=== PATIENT | male | born 1975 | race Caucasian/White ===

== ENCOUNTER → 2017-09-18 | Outpatient (CLI) | payer OTHER ==
[2017-09-18 10:56] LABS: BASO # 0.1 10^3/uL (0.0-0.2); BASO % 0.9 % (0.0-1.0); EOS # 0.6 10^3/uL (0.0-0.50); EOS % 9.7 % (0.0-3.0); IMMATURE GRANULOCYTE % 0.5 % (0-0); LYMPH # 1.8 10^3/uL (1.5-4.5); LYMPH % 30.5 % (24.0-44.0); MEAN CORPUSCULAR HEMOGLOBIN 30.6 pg (27.0-33.0); MEAN CORPUSCULAR HGB CONC 34.2 g/dl (32.0-36.5); MEAN CORPUSCULAR VOLUME 89.3 fl (80.0-96.0); MONO # 0.6 10^3/uL (0.0-0.8); MONO % 10.1 % (0.0-5.0); NEUTROPHILS # 2.8 10^3/uL (1.8-7.7); NEUTROPHILS % 48.3 % (36.0-66.0); PLATELET COUNT, AUTOMATED 239 10^3/uL (150-450); RED CELL DISTRIBUTION WIDTH 12.6 % (11.5-14.5); WHITE BLOOD COUNT 5.9 10^3/uL (4.0-10.0)
[2017-09-18 11:41] LABS: ALBUMIN 4.1 GM/DL (3.2-5.2); ALBUMIN/GLOBULIN RATIO 1.24 (1.00-1.93); ALKALINE PHOSPHATASE 58 U/L (45-117); ALT/SGPT 63 U/L (12-78); ANION GAP 6 MEQ/L (8-16); AST/SGOT 25 U/L (7-37); BILIRUBIN,TOTAL 0.5 MG/DL (0.2-1.0); BLOOD UREA NITROGEN 13 MG/DL (7-18); CALCIUM LEVEL 9.4 MG/DL (8.5-10.1); CARBON DIOXIDE LEVEL 29 MEQ/L (21-32); CHLORIDE LEVEL 106 MEQ/L (98-107); CHOLESTEROL LEVEL 217 MG/DL (<200); CREATININE FOR GFR 0.97 MG/DL (0.70-1.30); FREE T4 0.96 NG/DL (0.76-1.46); GLOMERULAR FILTRATION RATE > 60.0 (>60); GLUCOSE, FASTING 87 MG/DL (70-105); POTASSIUM SERUM 4.1 MEQ/L (3.5-5.1); SODIUM LEVEL 141 MEQ/L (136-145); TOTAL PROTEIN 7.4 GM/DL (6.4-8.2); TRIGLYCERIDES LEVEL 133 MG/DL (<150)
[2017-09-19 14:18] LABS: PSA TOTAL 0.8 ng/mL (0.0-4.0)
== END ==
LOC: M LAB 09:45
PROVIDERS: ATTEND Family Medicine
DX: E78.00 Pure hypercholesterolemia, unspecified (principal); N41.0 Acute prostatitis; Z13.29 Encounter for screening for other suspected endocrine disorder; Z12.11 Encounter for screening for malignant neoplasm of colon; D64.9 Anemia, unspecified

== ENCOUNTER → 2018-11-08 | Outpatient (CLI) | payer OTHER ==
[2018-11-08 09:30] LABS: BASO % 0.6 % (0.0-1.0); EOS # 0.2 10^3/uL (0.0-0.50); EOS % 2.8 % (0.0-3.0); HEMATOCRIT 46.1 % (42.0-52.0); HEMOGLOBIN 15.9 g/dl (13.5-17.5); LYMPH # 1.9 10^3/uL (1.5-4.5); LYMPH % 34.8 % (24.0-44.0); MEAN CORPUSCULAR HEMOGLOBIN 31.2 pg (27.0-33.0); MEAN CORPUSCULAR HGB CONC 34.5 g/dl (32.0-36.5); MEAN CORPUSCULAR VOLUME 90.4 fl (80.0-96.0); MONO # 0.6 10^3/uL (0.0-0.8); MONO % 11.2 % (0.0-5.0); NEUTROPHILS # 2.7 10^3/uL (1.8-7.7); NEUTROPHILS % 50.2 % (36.0-66.0); PLATELET COUNT, AUTOMATED 236 10^3/uL (150-450); WHITE BLOOD COUNT 5.4 10^3/uL (4.0-10.0)
[2018-11-08 10:08] LABS: ALBUMIN 4.1 GM/DL (3.2-5.2); ALT/SGPT 55 U/L (12-78); BILIRUBIN,TOTAL 0.7 MG/DL (0.2-1.0); BLOOD UREA NITROGEN 15 MG/DL (7-18); CALCIUM LEVEL 8.9 MG/DL (8.5-10.1); CARBON DIOXIDE LEVEL 29 MEQ/L (21-32); CHLORIDE LEVEL 105 MEQ/L (98-107); CHOLESTEROL LEVEL 189 MG/DL (<200); CHOLESTEROL RISK RATIO 6.096 (<5); CREATININE FOR GFR 1.05 MG/DL (0.70-1.30); FREE T4 0.93 NG/DL (0.76-1.46); GLOMERULAR FILTRATION RATE > 60.0 (>60); GLUCOSE, FASTING 98 MG/DL (70-100); HDL CHOLESTEROL 31 MG/DL (>40); LDL CHOLESTEROL 128 MG/DL (<100); NON-HDL-C 158 MG/DL; POTASSIUM SERUM 4.2 MEQ/L (3.5-5.1); PROSTATIC SPECIFIC AG MONITOR 0.65 NG/ML (< 4.00); SODIUM LEVEL 141 MEQ/L (136-145); TOTAL PROTEIN 7.2 GM/DL (6.4-8.2); TRIGLYCERIDES LEVEL 152 MG/DL (<150)
== END ==
LOC: M LAB 09:02
PROVIDERS: ATTEND Family Medicine
DX: Z13.29 Encounter for screening for other suspected endocrine disorder (principal); E78.00 Pure hypercholesterolemia, unspecified; N41.0 Acute prostatitis; D64.9 Anemia, unspecified

== ENCOUNTER 2019-10-23 15:55 | Emergency (ER) | payer OTHER ==
[~2019-10-23] VITALS: Ht 195.6 cm; Wt 137.6 kg
[2019-10-23] MEDS ORDERED: CYAN1000VL (16:06)
[2019-10-23] MEDS ORDERED: TIZA4TAB4 (16:06)
[2019-10-23] MEDS ORDERED: HYDR-4571 (16:06)
[2019-10-23 16:37] LABS: BASO % 0.5 % (0.0-1.0); EOS # 0.1 10^3/uL (0.0-0.5); EOS % 1.1 % (0.0-3.0); HEMOGLOBIN 17.1 g/dl (13.5-17.5); LYMPH # 2.4 10^3/uL (1.5-5.0); LYMPH % 28.8 % (24.0-44.0); MEAN CORPUSCULAR HEMOGLOBIN 30.1 pg (27.0-33.0); MEAN CORPUSCULAR HGB CONC 32.9 g/dl (32.0-36.5); MEAN CORPUSCULAR VOLUME 91.4 fl (80.0-96.0); MONO # 0.8 10^3/uL (0.0-0.8); MONO % 9.7 % (0.0-5.0); NEUTROPHILS # 4.9 10^3/uL (1.5-8.5); NEUTROPHILS % 59.7 % (36.0-66.0); PLATELET COUNT, AUTOMATED 255 10^3/uL (150-450); RED BLOOD COUNT 5.69 10^6/uL (4.30-6.10); WHITE BLOOD COUNT 8.2 10^3/uL (4.0-10.0)
[2019-10-23 16:40] LABS: INR 1.08; PROTHROMBIN TIME 13.8 SECONDS (11.8-14.0)
[2019-10-23 16:41] LABS: PARTIAL THROMBOPLASTIN TIME 26.3 SECONDS (25.0-38.4)
[2019-10-23] MEDS ORDERED: ASPIRIN 325 MG TAB PO ONE (16:45)
[2019-10-23] MEDS ORDERED: GI COCKTAIL 50ML BTL(HYOSCYAMINE/MAALOX/LIDOCAINE VISCOUS)(1:3:1) PO ONE (16:45)
[2019-10-23 17:07] LABS: ALBUMIN 4.4 GM/DL (3.2-5.2); ALT/SGPT 51 U/L (12-78); BILIRUBIN,DIRECT 0.2 MG/DL (0.0-0.2); BILIRUBIN,TOTAL 0.5 MG/DL (0.2-1.0); BLOOD UREA NITROGEN 13 MG/DL (7-18); C REACTIVE PROTEIN QUANTITATIV < 0.30 MG/DL (0.00-0.30); CALCIUM LEVEL 9.3 MG/DL (8.5-10.1); CARBON DIOXIDE LEVEL 29 MEQ/L (21-32); CHLORIDE LEVEL 104 MEQ/L (98-107); CK-MB VALUE MASS < 1.0 NG/ML (<3.6); CPK CREATINE PHOSPHOKINASE 154 U/L (39-308); CREATININE FOR GFR 1.06 MG/DL (0.70-1.30); GLOMERULAR FILTRATION RATE > 60.0 (>60); GLUCOSE, FASTING 80 MG/DL (70-100); MB/CK RELATIVE INDEX 0.65 (< OR =4); POTASSIUM SERUM 3.5 MEQ/L (3.5-5.1); SODIUM LEVEL 139 MEQ/L (136-145); TOTAL PROTEIN 8.2 GM/DL (6.4-8.2); TROPONIN I < 0.02 NG/ML (< 0.10)
[2019-10-23] MEDS ORDERED: ISOVUE-370 76% 100ML VIAL (Q9967) As Ordered ONE (17:20)
[2019-10-23] MEDS ORDERED: KETOROLAC 30 MG/ML VIAL (J1885) IV ONE (19:15)
[2019-10-23 20:59] LABS: CK-MB VALUE MASS < 1.0 NG/ML (<3.6); CPK CREATINE PHOSPHOKINASE 132 U/L (39-308); MB/CK RELATIVE INDEX 0.76 (< OR =4); TROPONIN I < 0.02 NG/ML (< 0.10)
[2019-10-23 21:00] VITALS: BP 141/84
--- NOTE | 2019-10-24 10:49 | REP ---
CHEST, SINGLE VIEW: There is no evidence of acute infiltrate. No pleural effusion is seen. The heart is normal in size. The mediastinal silhouette is unremarkable. The visualized osseous structures are intact. IMPRESSION: No acute pulmonary disease. Electronically Signed by Nando Aparicio MD 10/24/2019 04:46 P
--- NOTE | 2019-10-24 22:27 | ECGEPIP ---
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
--- NOTE | 2019-10-24 22:33 | ECGEPIP ---
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
== END 2019-10-23 21:27 | disposition home or self-care (01) ==
LOC: M ED 15:55
DX: R07.89 Other chest pain (principal); Z88.1 Allergy status to other antibiotic agents; Z91.040 Latex allergy status; Z91.048 Other nonmedicinal substance allergy status
CPT/HCPCS: 71045; 71275; 80048; 80076; 82550; 82553; 84443; 85025; 85610; 85730; 86140; 93005; 93041; 94760; 96374; 99285; J1885; Q9967

== ENCOUNTER → 2020-04-22 | Outpatient (REF) | payer OTHER ==
[~2020-04-22] MED LIST: CYAN1000VL; HYDR-4571; TIZA4TAB4
[2020-04-22 14:57] LABS: AMORPHOUS SEDIMENT LARGE (NEGATIVE); APPEARANCE, URINE TURBID (CLEAR); BACTERIA, URINE AUTO 2+ (NEGATIVE); BILIRUBIN, URINE AUTO NEGATIVE (NEGATIVE); BLOOD, URINE BLOOD NEGATIVE (NEGATIVE); COLOR, URINE YELLOW (YELLOW); GLUCOSE, URINE (UA) AUTO NEGATIVE (NEGATIVE); KETONE, URINE AUTO NEGATIVE (NEGATIVE); LEUKOCYTE ESTERASE, URINE AUTO NEGATIVE (NEGATIVE); MUCUS, URINE SMALL (NEGATIVE); NITRITE, URINE AUTO NEGATIVE (NEGATIVE); PROTEIN, URINE AUTO NEGATIVE (NEGATIVE); RBC, URINE AUTO 0 /HPF (0-3); SPECIFIC GRAVITY URINE AUTO 1.029 (1.002-1.035); SQUAMOUS EPITHELIAL CELL UR AU 3 /HPF (0-6); UROBILINOGEN, URINE AUTO 0.2 mg/dL (0.0-2.0); WBC, URINE AUTO 0 /HPF (0-3)
== END ==
LOC: M SMT 14:38
PROVIDERS: ATTEND Nurse Practitioner Women's Health
DX: R30.0 Dysuria (principal)

== ENCOUNTER → 2020-05-16 | Outpatient (CLI) | payer OTHER | LOC: M LABSMTC 09:59 | PROVIDERS: ATTEND Urology | DX: Z01.818 Encounter for other preprocedural examination (principal); Z11.59 Encounter for screening for other viral diseases | CPT/HCPCS: C9803; U0003 ==

== ENCOUNTER → 2020-07-20 | Outpatient (CLI) | payer OTHER | LOC: M LAB 14:17 | PROVIDERS: ATTEND Surgery | DX: N35.812 Other bulbous urethral stricture, male (principal) ==

== ENCOUNTER → 2020-07-23 | Outpatient (CLI) | payer OTHER ==
[2020-07-23 12:35] LABS: APPEARANCE, URINE CLEAR (CLEAR); BACTERIA, URINE AUTO NEGATIVE (NEGATIVE); BILIRUBIN, URINE AUTO NEGATIVE (NEGATIVE); BLOOD, URINE BLOOD NEGATIVE (NEGATIVE); COLOR, URINE YELLOW (YELLOW); GLUCOSE, URINE (UA) AUTO NEGATIVE (NEGATIVE); KETONE, URINE AUTO NEGATIVE (NEGATIVE); LEUKOCYTE ESTERASE, URINE AUTO NEGATIVE (NEGATIVE); MUCUS, URINE SMALL (NEGATIVE); NITRITE, URINE AUTO NEGATIVE (NEGATIVE); PROTEIN, URINE AUTO NEGATIVE (NEGATIVE); RBC, URINE AUTO 1 /HPF (0-3); SPECIFIC GRAVITY URINE AUTO 1.017 (1.002-1.035); SQUAMOUS EPITHELIAL CELL UR AU 0 /HPF (0-6); UROBILINOGEN, URINE AUTO 0.2 mg/dL (0.0-2.0); WBC, URINE AUTO 1 /HPF (0-3)
== END ==
LOC: M LAB 09:28
PROVIDERS: ATTEND Surgery
DX: N35.812 Other bulbous urethral stricture, male (principal)

== ENCOUNTER 2020-12-26 03:01 | Emergency (ER) | payer OTHER ==
[~2020-12-26] VITALS: Ht 195.6 cm; Wt 138.9 kg
[2020-12-26] MEDS ORDERED: PREDOPD OD (03:11)
[2020-12-26] MEDS ORDERED: OCUF0.25 OD (03:11)
--- OUTSIDE RECORDS SUMMARY | 2020-12-26 03:11 | CCD | Summary of Care ---
Author Author [facility] Organization [facility] Address Unknown Phone Unavailable Care Team Providers Care Journal Box Inspector Name Role Phone Dalila Durán TECHNOLOGY PROGRAM MANAGER PCP Reason for Visit * Reason Comments Follow-up status post urethroplasty Encounter Details Care Team Description Date Type Department Vinny Aburto MD [address] [place] [address] Other stricture of urethra in male (Prim marley Dx) 10/25/2020 Office Visit [facility] [address] [place] [address], [place] [address] Allergies Comments Active Allergy Reactions Severity Noted Date Adhesive Tape Rash Low 06/14/2020 Glucose Rash Low 07/27/2020 Latex Rash Low 06/14/2020 Red Dye Hives 07/27/2020 documented as of this encounter (statuses as of 10/25/2020) Medications End Date Status Medication Sig Dispensed Refills Start Date Active Cyanocobalamin 1000 INJECT ONE 0 MCG/ML Injection Solution MILLILITER 0 (VITAMIN B12) EVERY TWO WEEKS Active HYDROcodone-Acetaminophen TAKE TWO 0 5-325 MG Oral Tablet TABLETS BY 0 (LORTAB) MOUTH AT BEDTIME NEEDED MAX DAILY DOSE TWO TABLETS Active tiZANidine HCl 4 MG Oral TAKE ONE 0 02/08 Tablet (ZANAFLEX) TABLET BY 0 MOUTH EVERY EIGHT HOURS NEEDED Active Vitamin D TAKE ONE 0 (Ergocalciferol) 1.25 MG CAPSULE BY 9 (59921 UT) Oral Capsule MOUTH ONCE A (ERGOCALCIFEROL) MONTH Active Loratadine 10 MG Oral Take 10 mg by 0 Tablet (CLARITIN) mouth as needed Active UNABLE TO FIND every morning 0 Med Name: Prosta Strong , Active POTASSIUM PO Take by mouth 0 Supplement for a-fib , monthly Active diphenhydrAMINE HCl 50 MG Take 25 mg by 0 Oral Capsule (BENADRYL) mouth every 6 (six) hours as needed for Itching Active Ascorbic Acid (VITAMIN C Take by mouth 0 PO) every morning Active Elderberry 575 MG/5ML Take 1 mL by 0 08/05/20 2 Oral Syrup mouth every 0 morning Active maalox/lidocaine/diphenhy Swish and 480 mL 2 drAMINE 1:1:1 SWISH & spit 10 mLs 0 SWAL oral suspension every 2 (two) hours as needed (For Mouth Pain)Pharmacy compound: Maalox, lidocaine viscous 2 %, Benadryl 12.5 mg/5 mL Additional Information Patient not taking. Reported on 10/25/2020 10:15 AM documented as of this encounter (statuses as of 10/25/2020) Active Problems Problem Noted Date Urethral stricture documented as of this encounter (statuses as of 10/25/2020) Social History Date Tobacco Use Types Packs/Day Years Used Never Smoker Smokeless Tobacco: Never Used Drinks/Week oz/Week Comments Alcohol Use occasionally Yes Sex Assigned at Date Recorded Not on file Date Recorded COVID-19 Exposure Response 10/25/2020 9:53 AM EST In the last month, have you been in contact with No / Unsure someone who was confirmed or suspected to have Coronavirus / COVID-19? documented as of this encounter Last Filed Vital Signs Reading Time Taken Comments Vital Sign 143/96 10/25/2020 10:07 AM EST Blood Pressure 72 10/25/2020 10:07 AM EST Pulse 36.7 C (98.1 F) 10/25/2020 10:07 AM EST Temperature 18 10/25/2020 10:07 AM EST Respiratory Rate 97% 10/25/2020 10:07 AM EST Oxygen Saturation - - Inhaled Oxygen Concentration 138.8 kg (306 lb) 10/25/2020 10:07 AM EST Weight 193 cm (6' 3.98") 10/25/2020 10:07 AM EST Height 37.26 10/25/2020 10:07 AM EST Body Mass Index documented in this encounter Progress Notes * Shayla Serna MD - 10/25/2020 10:00 AM EST Chief complaint Urethral stricture status post repair History of Present Illness Raghavendra Salinas is a pleasant 45 y.o. male with history of urethral stricture st atus post repair with liquid buccal mucosal graft presents for follow-up visit. Patient has been doing well since his procedure. He denies any mouth pain, dysur ia, hematuria, or UTIs. Patient endorses good flow of stream. He is very happy w ith the functional and aesthetic out come of the procedure and has no additional concerns at this time. No fever, no chills, no penile/perineal or oral pain. He has long history of low libido (his preop testosterone is wnl), as he attribu bakari likely due to long-standing anxiety and depression. RAYMOND IPSS , (frequency=2, nocturia=1) QOL 0 GRA +3 PROM (peeling score marked 4= highest force of flow) MSHQ reported PAST MEDICAL HISTORY Past Medical History: Diagnosis Date Atrial fibrillation r/t potassium deficiency Pernicious anemia Urethral stricture PAST SURGICAL HISTORY Past Surgical History: Procedure Laterality Date NOSE SURGERY urethral stricture surgery 2008 Urethral Stricture surgery 2010 WISDOM TOOTH EXTRACTION Medications: Current Outpatient Medications: Ascorbic Acid (VITAMIN C PO), Take by mouth every morning, Disp: , Rfl: Cyanocobalamin 1000 MCG/ML Injection Solution (VITAMIN B12), INJECT ONE MILLILITER EVERY TWO WEEKS, Disp: , Rfl: diphenhydrAMINE HCl 50 MG Oral Capsule (BENADRYL), Take 25 mg by mouth e very 6 (six) hours as needed for Itching, Disp: , Rfl: Elderberry 575 MG/5ML Oral Syrup, Take 1 mL by mouth every morning, Disp : , Rfl: HYDROcodone-Acetaminophen 5-325 MG Oral Tablet (LORTAB), TAKE TWO TABLET S BY MOUTH AT BEDTIME NEEDED MAX DAILY DOSE TWO TABLETS, Disp: , Rfl: Loratadine 10 MG Oral Tablet (CLARITIN), Take 10 mg by mouth as needed , Disp: , Rfl: maalox/lidocaine/diphenhydrAMINE 1:1:1 SWISH & SWAL oral suspension, Swish and spit 10 mLs every 2 (two) hours as needed (For Mouth Pain)Pharmacy compound: Maalox, lidocaine viscous 2 %, Benadryl 12.5 mg/5 mL, Disp: 480 mL, Rfl: 2 POTASSIUM PO, Take by mouth Supplement for a-fib , monthly, Disp: , Rfl: tiZANidine HCl 4 MG Oral Tablet (ZANAFLEX), TAKE ONE TABLET BY MOUTH TAMIKA RY EIGHT HOURS NEEDED, Disp: , Rfl: UNABLE TO FIND, every morning Med Name: Heriberto Galicia ,, Disp: , Rfl: Vitamin D (Ergocalciferol) 1.25 MG (44094 UT) Oral Capsule (ERGOCALCIFER OL), TAKE ONE CAPSULE BY MOUTH ONCE A MONTH, Disp: , Rfl: Allergies: Red dye, Adhesive tape, [place] syrup [glucose], and Latex PAST FAMILY Family History Problem Relation Age of Onset Anemia Father Breast cancer Mother Family history reviewed and otherwise non-contributory SOCIAL HISTORY Social History Socioeconomic History Marital status: Spouse name: Not on file Number of children: Not on file Years of education: Not on file Highest education level: Not on file Occupational History Not on file Social Needs Financial resource strain: Not on file Food insecurity Worry: Not on file Inability: Not on file Transportation needs Medical: Not on file Non-medical: Not on file Tobacco Use Smoking status: Never Smoker Smokeless tobacco: Never Used Substance and Sexual Activity Alcohol use: Yes Comment: occasionally Drug use: Never Sexual activity: Not on file Lifestyle Physical activity Days per week: Not on file Minutes per session: Not on file Stress: Not on file Relationships Social connections Talks on phone: Not on file Gets together: Not on file Attends baptism service: Not on file Active member of club or organization: Not on file Attends meetings of clubs or organizations: Not on file Relationship status: Not on file Intimate partner violence Fear of current or ex partner: Not on file Emotionally abused: Not on file Physically abused: Not on file Forced sexual activity: Not on file Other Topics Concern Not on file Social History Narrative Not on file REVIEW OF SYSTEMS Pertinent positives noted in the HPI, remainder of complete review of systems ne gative EXAMINATION Vitals: 10/25/20 1007 BP: (!) 143/96 Pulse: 72 Resp: 18 Temp: 36.7 C SpO2: 97% Gen: NAD, A&O X3 Head: NC/AT Neuro: Ambulating independently w/o gait abnormalities Eyes: EOMI, Pupils equal Neck: supple Lungs: Breathing and speaking easily on RA Abd: soft, NT/ND, no masses palpable Back: no CVA tenderness b/l, no back deformities Skin: warm, dry Extr: No edema Uroflow: Peak flow rate: 38 mL/s Average flow rate: 19 mL/s Voided volume: 416 mL PVR: 135 2nd void: 250 mL Calculated PVR: 0 mL ASSESSMENT/RECOMMENDATIONS 45 y.o. male with history of urethral stricture status post repair with liquid buccal mucosal graft who presents for 3 month follow up. Patient has been doin g well since the procedure and is very happy with both the functional and aesthe tic outcomes. He has no urinary concerns at this time. -Return to clinic in 4 months for follow-up. Patient seen and examined with Dr. Aburto. Please see attending addendum for changes/additional management plans. Attestation: I was present with the resident during the history and exam. I dis cussed the case with the resident and agree with the findings and plan as docume nted in the resident's note. Vinny Aburto MD documented in this encounter Nursing Notes * Mariluz Real - 10/25/2020 10:00 AM EST Uroflow results are: Peak flow = 37.8 mL/sec Mean Flow = 19.2 mL/sec Total voided volume = 416 mL PVR = 135 mL documented in this encounter Plan of Treatment Care Team Description Date Type Specialty Vinny Aburto MD [address] [place] [address] [phone] 02/21/2021 Office Visit Urology Health Maintenance Due Date Last Done Comments MMR Vaccines (1 of - 1978 Standard series) Varicella Vaccines (1 of 1978 2 - 2-dose childhood series) DTaP,Tdap,and Td Vaccines 01/12/1984 (1 - Tdap) HIV Screening 1990 Influenza Vaccine 08/05/2020 Pneumococcal Vaccine: 65+ 2042 Years (1 of 1 - PPSV23) HIB Vaccines Aged Out No longer eligible based on patient's age to complete this topic Hepatitis A Vaccines Aged Out No longer eligibl e based on patient's age to complete this topic Hepatitis B Vaccines Aged Out No longer eligibl e based on patient's age to complete this topic IPV Vaccines Aged Out No longer eligible based on patient's age to complete this topic Pneumococcal Vaccine: Aged Out No longer eligib le based on patient's age to Pediatrics (0 to 5 Years) complete this topic and At-Risk Patients (6 to 64 Years) documented as of this encounter Results Not on filedocumented in this encounter Visit Diagnoses Diagnosis Other stricture of urethra in male - Pr imary documented in this encounter
--- OUTSIDE RECORDS SUMMARY | 2020-12-26 03:12 | CCD ---
Author Author [facility] Organization [facility] Address Unknown Phone Unavailable Care Team Providers Care Wellness Consultant Name Role Phone ERIN JHONSON Unavailable Unavailabl e [facility], MJAIN Unavailable Unavailable Vinny Aburto MD Unavailable Unavailable Vinny Aburto MD Unavailable Unavailable Vinny Aburto MD Unavailable Unavailable Vinny Aburto MD Unavailable Unavailable Vinny Aburto MD Unavailable Unavailable Vinny Aburto MD Unavailable Unavailable Vinny Aburto MD Unavailable Unavailable Vinny Aburto MD Unavailable Unavailable Vinny Aburto MD Unavailable Unavailable Vinny Aburto MD Unavailable Unavailable Vinny Aubrto MD Unavailable Unavailable Vinny Aburto MD Unavailable Unavailable Vinny Aburto MD Unavailable Unavailable Vinny Aburto MD Unavailable Unavailable Vinny Aburto MD Unavailable Unavailable Vinny Aburto Unavailable Unavailable Nikolavsky Vinny MD Unavailable Unavailable Nikolavsky Vinny MD Unavailable Unavailable Nikolavsky Vinny MD Unavailable Unavailable Nikolavsky Vinny MD Unavailable Unavailable Nikolavsky Vinny MD Unavailable Unavailable Nikolavsky Vinny MD Unavailable Unavailable Nikolavsky Vinny MD Unavailable Unavailable Nikolavsky Vinny MD Unavailable Unavailable Nikolavsky Vinny MD Unavailable Unavailable Nikolavsky Vinny MD Unavailable Unavailable Nikolavsky Vinny MD Unavailable Unavailable Nikolavsky Vinny MD Unavailable Unavailable Nikolavsky Vinny MD Unavailable Unavailable Nikolavsky Vinny MD Unavailable Unavailable Nikolavsky Vinny MD Unavailable Unavailable Nikolavsky Vinny MD Unavailable Unavailable Nikolavsky Vinny MD Unavailable Unavailable Nikolavsky Vinny MD Unavailable Unavailable Nikolavsky Vinny MD Unavailable Unavailable Nikolavsky Vinny MD Unavailable Unavailable Nikolavsky Vinny MD Unavailable Unavailable Nikolavsky Vinny MD Unavailable Unavailable Nikolavsky Vinny MD Unavailable Unavailable Nikolavsky Vinny MD Unavailable Unavailable Nikolavsky Vinny MD Unavailable Unavailable Nikolavsky Vinny MD Unavailable Unavailable Nikolavsky Vinny MD Unavailable Unavailable Nikolavsky Vinny MD Unavailable Unavailable Nikolavsky Vinny MD Unavailable Unavailable Nikolavsky Vinny MD Unavailable Unavailable ALIASES , DEFAULT / GENERIC / UNKNOWN PROVIDER * Unavailable Unavailable ALIASES , DEFAULT / GENERIC / UNKNOWN PROVIDER * Unavailable Unavailable ALIASES , DEFAULT / GENERIC / UNKNOWN PROVIDER * Unavailable Unavailable ALIASES , DEFAULT / GENERIC / UNKNOWN PROVIDER * Unavailable Unavailable ALIASES , DEFAULT / GENERIC / UNKNOWN PROVIDER * Unavailable Unavailable ALIASES , DEFAULT / GENERIC / UNKNOWN PROVIDER * Unavailable Unavailable ALIASES , DEFAULT / GENERIC / UNKNOWN PROVIDER * Unavailable Unavailable ALIASES , DEFAULT / GENERIC / UNKNOWN PROVIDER * Unavailable Unavailable ALIASES , DEFAULT / GENERIC / UNKNOWN PROVIDER * Unavailable Unavailable ALIASES , DEFAULT / GENERIC / UNKNOWN PROVIDER * Unavailable Unavailable ALIASES , DEFAULT / GENERIC / UNKNOWN PROVIDER * Unavailable Unavailable ALIASES , DEFAULT / GENERIC / UNKNOWN PROVIDER * Unavailable Unavailable ALIASES , DEFAULT / GENERIC / UNKNOWN PROVIDER * Unavailable Unavailable ALIASES , DEFAULT / GENERIC / UNKNOWN PROVIDER * Unavailable Unavailable ALIASES , DEFAULT / GENERIC / UNKNOWN PROVIDER * Unavailable Unavailable ALIASES , DEFAULT / GENERIC / UNKNOWN PROVIDER * Unavailable Unavailable ALIASES , DEFAULT / GENERIC / UNKNOWN PROVIDER * Unavailable Unavailable ALIASES , DEFAULT / GENERIC / UNKNOWN PROVIDER * Unavailable Unavailable ALIASES , DEFAULT / GENERIC / UNKNOWN PROVIDER * Unavailable Unavailable ALIASES , DEFAULT / GENERIC / UNKNOWN PROVIDER * Unavailable Unavailable ALIASES , DEFAULT / GENERIC / UNKNOWN PROVIDER * Unavailable Unavailable ALIASES , DEFAULT / GENERIC / UNKNOWN PROVIDER * Unavailable Unavailable ALIASES , DEFAULT / GENERIC / UNKNOWN PROVIDER * Unavailable Unavailable ALIASES , DEFAULT / GENERIC / UNKNOWN PROVIDER * Unavailable Unavailable ALIASES , DEFAULT / GENERIC / UNKNOWN PROVIDER * Unavailable Unavailable ALIASES , DEFAULT / GENERIC / UNKNOWN PROVIDER * Unavailable Unavailable ALIASES , DEFAULT / GENERIC / UNKNOWN PROVIDER * Unavailable Unavailable ALIASES , DEFAULT / GENERIC / UNKNOWN PROVIDER * Unavailable Unavailable ALIASES , DEFAULT / GENERIC / UNKNOWN PROVIDER * Unavailable Unavailable ALIASES , DEFAULT / GENERIC / UNKNOWN PROVIDER * Unavailable Unavailable ALIASES , DEFAULT / GENERIC / UNKNOWN PROVIDER * Unavailable Unavailable ALIASES , DEFAULT / GENERIC / UNKNOWN PROVIDER * Unavailable Unavailable ALIASES , DEFAULT / GENERIC / UNKNOWN PROVIDER * Unavailable Unavailable ALIASES , DEFAULT / GENERIC / UNKNOWN PROVIDER * Unavailable Unavailable ALIASES , DEFAULT / GENERIC / UNKNOWN PROVIDER * Unavailable Unavailable ALIASES , DEFAULT / GENERIC / UNKNOWN PROVIDER * Unavailable Unavailable ALIASES , DEFAULT / GENERIC / UNKNOWN PROVIDER * Unavailable Unavailable ALIASES , DEFAULT / GENERIC / UNKNOWN PROVIDER * Unavailable Unavailable ALIASES , DEFAULT / GENERIC / UNKNOWN PROVIDER * Unavailable Unavailable ALIASES , DEFAULT / GENERIC / UNKNOWN PROVIDER * Unavailable Unavailable ALIASES , DEFAULT / GENERIC / UNKNOWN PROVIDER * Unavailable Unavailable ALIASES , DEFAULT / GENERIC / UNKNOWN PROVIDER * Unavailable Unavailable ALIASES , DEFAULT / GENERIC / UNKNOWN PROVIDER * Unavailable Unavailable ALIASES , DEFAULT / GENERIC / UNKNOWN PROVIDER * Unavailable Unavailable ALIASES , DEFAULT / GENERIC / UNKNOWN PROVIDER * Unavailable Unavailable ALIASES , DEFAULT / GENERIC / UNKNOWN PROVIDER * Unavailable Unavailable ALIASES , DEFAULT / GENERIC / UNKNOWN PROVIDER * Unavailable Unavailable ALIASES , DEFAULT / GENERIC / UNKNOWN PROVIDER * Unavailable Unavailable ALIASES , DEFAULT / GENERIC / UNKNOWN PROVIDER * Unavailable Unavailable ALIASES , DEFAULT / GENERIC / UNKNOWN PROVIDER * Unavailable Unavailable ALIASES , DEFAULT / GENERIC / UNKNOWN PROVIDER * Unavailable Unavailable ALIASES , DEFAULT / GENERIC / UNKNOWN PROVIDER * Unavailable Unavailable ALIASES , DEFAULT / GENERIC / UNKNOWN PROVIDER * Unavailable Unavailable [facility], EFOWLER Unavailable Unavailable Aaron SOSA Unavailable Unavailable RASHAAD IV, L YANN LIFTER Unavailable Unavailable RASHAAD IV, L YANN LIFTER Unavailable Unavailable RASHAAD IV, L YANN LIFTER Unavailable Unavailable RASHAAD IV, L YANN LIFTER Unavailable Unavailable RASHAAD IV, L YANN LIFTER Unavailable Unavailable RASHAAD IV, L YANN LIFTER Unavailable Unavailable RASHAAD IV, L YANN LIFTER Unavailable Unavailable RASHAAD IV, L YANN LIFTER Unavailable Unavailable RASHAAD IV, L YANN LIFTER Unavailable Unavailable RASHAAD IV, L YANN LIFTER Unavailable Unavailable RASHAAD IV, L YANN LIFTER Unavailable Unavailable RASHAAD IV, L YANN LIFTER Unavailable Unavailable RASHAAD IV, L YANN LIFTER Unavailable Unavailable RASHAAD IV, L YANN LIFTER Unavailable Unavailable RASHAAD IV, L YANN LIFTER Unavailable Unavailable RASHAAD IV, L YANN LIFTER Unavailable Unavailable RASHAAD IV, L YANN LIFTER Unavailable Unavailable RASHAAD IV, L YANN LIFTER Unavailable Unavailable RASHAAD IV, L YANN LIFTER Unavailable Unavailable RASHAAD IV, L YANN LIFTER Unavailable Unavailable RASHAAD IV, L YANN LIFTER Unavailable Unavailable RASHAAD IV, L YANN LIFTER Unavailable Unavailable RASHAAD IV, L YANN LIFTER Unavailable Unavailable RASHAAD IV, L YANN LIFTER Unavailable Unavailable RASHAAD IV, L YANN LIFTER Unavailable Unavailable RASHAAD IV, L YANN LIFTER Unavailable Unavailable RASHAAD IV, L YANN LIFTER Unavailable Unavailable RASHAAD IV, L YANN LIFTER Unavailable Unavailable RASHAAD IV, L YANN LIFTER Unavailable Unavailable RASHAAD IV, L YANN LIFTER Unavailable Unavailable RASHAAD IV, L YANN LIFTER Unavailable Unavailable RASHAAD IV, L YANN LIFTER Unavailable Unavailable Feola, T Molly PA Unavailable Unavailable Feola, T Molly PA Unavailable Unavailable Feola, T Molly PA Unavailable Unavailable Feola, T Molly PA Unavailable Unavailable Feola, T Molly PA Unavailable Unavailable Feola, T Molly PA Unavailable Unavailable Feola, T Molly PA Unavailable Unavailable Feola, T Molly PA Unavailable Unavailable Feola, T Molly PA Unavailable Unavailable Feola, T Molly PA Unavailable Unavailable Feola, T Molly PA Unavailable Unavailable Feola, T Molly PA Unavailable Unavailable Feola, T Molly PA Unavailable Unavailable Feola, T Molly PA Unavailable Unavailable Feola, T Molly PA Unavailable Unavailable Feola, T Molly PA Unavailable Unavailable Feola, T Molly PA Unavailable Unavailable Feola, T Molly PA Unavailable Unavailable Feola, T Molly PA Unavailable Unavailable Feola, T Molly PA Unavailable Unavailable Feola, T Molly PA Unavailable Unavailable Feola, T Molly PA Unavailable Unavailable Feola, T Molly PA Unavailable Unavailable Feola, T Molly PA Unavailable Unavailable Feola, T Molly PA Unavailable Unavailable Feola, T Molly PA Unavailable Unavailable Feola, T Molly PA Unavailable Unavailable Feola, T Molly PA Unavailable Unavailable Feola, T Molly PA Unavailable Unavailable Feola, T Molly PA Unavailable Unavailable Feola, T Molly PA Unavailable Unavailable Feola, T Molly PA Unavailable Unavailable Feola, T Molly PA Unavailable Unavailable Feola, T Molly PA Unavailable Unavailable Feola, T Molly PA Unavailable Unavailable Feola, T Molly PA Unavailable Unavailable Feola, T Molly PA Unavailable Unavailable Re-disclosure Warning The records that you are about to access may contain information from federally-assisted alcohol or drug abuse programs. If such information is present, then the following federally mandated warning applies: This information has been disclosed to you from records protected by federal confidentiality rules (42 CFR part 2). The federal rules prohibit you from making any further disclosure of this information unless further disclosure is expressly permitted by the written consent of the person to whom it pertains or as otherwise permitted by 42 CFR part 2. A general authorization for the release of medical or other information is NOT sufficient for this purpose. The Federal rules restrict any use of the information to criminally investigate or prosecute any alcohol or drug abuse patient.The records that you are about to access may contain highly sensitive health information, the redisclosure of which is protected by Article 27-F of the [facility] Public Health law. If you continue you may have access to information: Regarding HIV / AIDS; Provided by facilities licensed or operated by the [facility] Office of Mental Health; or Provided by the [facility] Office for People With Developmental Disabilities. If such information is present, then the following [facility] mandated warning applies: This information has been disclosed to you from confidential records which are protected by state law. State law prohibits you from making any further disclosure of this information without the specific written consent of the person to whom it pertains, or as otherwise permitted by law. Any unauthorized further disclosure in violation of state law may result in a fine or detention sentence or both. A general authorization for the release of medical or other information is NOT sufficient authorization for further disc losure. Allergies and Adverse Reactions Type Description Substance Reaction Status Data Source(s ) DRUG INGREDI GLUCOSE GLUCOSE Rash [facility] DRUG INGREDI RED DYE RED DYE Hives [facility] DRUG INGREDI LATEX Latex Rash [facility] Chemical ADHESIVE TAPE ADHESIVE TAPE Rash [facility] Food allergy CORN SYRUP CORN SYRUP [facility] Food allergy RED 40 DYE RED 40 DYE [facility] Miscellaneous allergy LATEX LATEX [facility] Family History Family Member Name Family Member Gender Family Member Status Date o f Status Description Data Source(s) Unknown Unknown Problem [facility] ([facility] Encounters Encounter Providers Location Date Indications Data Source(s ) Outpatient Attender: Vinny Aburto MD 02/21/2021 12:0 0:[address] [facility] Outpatient Attender: Molly FISHER 021 01:01:05 PM EST - 12/08/2020 01:39:33 PM EST [facility] ([facility] ) Outpatient Attender: Vinny Aburto MD [id number] 10/25/2020 12:00:00 AM EST - 10/25/2020 11:11:32 AM EST Other urethral stricture, male, unspecif ied [facility] Other urethral stricture, male, unspecif ied site Outpatient Attender: YANN NEIL IV [id number] 2019 07:13:00 AM EDT - 08/17/2020 07:14:00 AM T [facility] Patient discharged. Outpatient Attender: BRAYAN SOSA 08/13/2020 12 :00:00 AM EDT Other urethral stricture, male, unspecified [facility] Other urethral stricture, male, unspecif ied site Outpatient Attender: Vinny DrakeA-XXHAURO 08/06/2020 12:00:00 AM EDT - 08/06/2020 10:41:25 AM EDT Other urethral bulbous stricture, [facility] Other urethral bulbous stricture, male Outpatient Attender: Vinny DrakeA-XXHAURO 07/30/2020 12:00:00 AM EDT - 07/30/2020 04:05:04 PM EDT [facility] Outpatient Attender: Vinny Aburto MDAdmitter: Vinny Aburto MD [id number] 07/29/2020 05:40:00 AM EDT - 07/29/2020 02:35:00 PM ED T URETHRAL STRICTURE [facility] URETHRAL STRICTURE Patient discharged. Outpatient Attender: DEFAULT / GENE ALEXANDER / UNKNOWN PROVIDER ALIASES Attender: ERIN JOHNSONReferrer: Vinny Aburto MD [id number] 07/26/2020 12:00:00 AM EDT - 07/27/2020 12:00:00 AM ED T Contact with and (suspected) exposure to other viral communicable diseases [facility] Contact with and (suspected) exposure to other viral communicable diseases Outpatient 07/26/2020 12:00:00 AM EDT [facility] Outpatient Attender: SUHAIL [facility] 07/09/2020 02:38:[address] [facility] Outpatient Attender: SUHAIL [facility] 07/09/2020 12:59:[address] [facility] Outpatient Attender: Vinny Aburto MD [id number] 07/05/2020 12:00:00 AM EDT - 07/06/2020 12:00:00 AM EDT Other urethral bulbous stricture, [facility] Other urethral bulbous stricture, male Outpatient Attender: Vinny DrakeA-XXHAURO 06/14/2020 12:00:00 AM EDT - 06/14/2020 12:48:40 PM EDT Other urethral bulbous stricture, [facility] Other urethral bulbous stricture, male [facility] 12:[facility]:[address] [facility] Outpatient Attender: SU[facility]IL [facility] 06/09/2020 01:32:[address] [facility] Outpatient Attender: SU[facility]IL [facility] 06/09/2020 01:31:[address] [facility] Outpatient Attender: SUHAIL M[facility] DIONICIOVT 06/08/2020 03:09:[address] [facility] Outpatient Attender: CHUNG [facility] 06/08/2020 01:53:[address] [facility] Outpatient Attender: CH[facility]G [facility] 06/08/2020 01:52:01 PM E [facility] Unknown [address] [address] 04/23/2020 12:00:00 AM EDT eCW1 ([facility]) Outpatient [address] [address] 04/22/2020 12:00:00 AM EDT eCW1 ([facility]) Outpatient Attender: YANN NEIL IV [id number] 2019 09:07:00 AM EDT - 03/23/2020 09:08:00 AM EDT [facility] Patient discharged. Medications Medication Brand Name Start Date Product Form Dose Route Admi nistrative Instructions Pharmacy Instructions Status Indications Reaction Description Data Source(s) Elderberry 575 MG/5ML Oral Syrup [id number] 08/05/2020 12:00:00 AM EDT 1 mL Oral active Take 1 mL by mouth every morning [facility] celecoxib 100 MG Oral Capsule celecoxib (CELEBREX) cap alfa 100 mg celecoxib (CELEBREX) capsule 100 mg 07/30/2020 12:00:00 AM EDT 100 mg Oral active 100 mg, Oral, Every 12 hours, First dose on Sun at 0000, For 30 days [facility] Medication administered onsite Diazepam 5 MG Oral Tablet diazePAM (VALIUM) tablet 10 mg diazePAM (VALIUM) tablet 10 mg 07/29/2020 10:00:00 PM EDT 10 mg Oral activ e 10 mg, Oral, Nightly, First dose on Sun07/29/20 at 2200, For 3 days [facility] Medication administered onsite Docusate Sodium 100 MG Oral Capsule docusate sodium (C OLACE) capsule 100 mg docusate sodium (COLACE) capsule 100 mg 07/29/2020 09:00:00 PM EDT 100 mg Oral active 100 mg, Oral, 2 Times Daily, First dose on Justine 07/29/20 at 2100, For 30 days [facility] Medication administered onsite Oxybutynin chloride 5 MG Oral Tablet oxybutynin (DITRO ROBERSON) tablet 5 mg oxybutynin (DITROPAN) tablet 5 mg 07/29/2020 05:00:00 PM EDT 5 mg Oral active 5 mg, Oral, Three T imes Daily Standard, First dose on Justine 07/29/20 at 1700, For 30 days [facility] Medication administered onsite Cefazolin 2000 MG Injection ceFAZolin (ANCEF) IVPB 2 g in dextrose (premix) ceFAZolin (ANCEF) IVPB 2 g in dextrose (premix) 07/29/2020 04:00:00 PM EDT 2 g Intravenous active 2 g, Int ravenous, Administer over 30 Minutes, Every 8 hours, First dose on Justine 07/29/20 at 1600, For 3 doses
Per SCIP Protocol
[facility] Medication administered onsite heparin (porcine) 5000 UNIT/ML injection 5,000 Units [id number] 07/29/2020 01:45:00 PM EDT 5000 U Subcutaneous active 5,000 Units, Subcutaneous, Every 8 hours, First dose on Justine 07/29/20 at 1345, For 30 days [facility] Medication administered onsite ondansetron (ZOFRAN) injection 4 mg [id number] 07/29/2020 01:44:1 7 PM EDT 4 mg Intravenous active 4 mg, In travenous, Every 8 hours PRN, Nausea, Vomiting, Starting Justine 07/29/20 at 1344, For 5 days [facility] Medication administered onsite Acetaminophen 325 MG Oral Tablet acetaminophen (TYLENO L) tablet 650 mg acetaminophen (TYLENOL) tablet 650 mg 07/29/2020 01:44:17 PM EDT 65 0 mg Oral active 650 mg, Oral, E very 4 hours PRN, Mild Pain (Pain Scale Score 1- 3), Fever, Starting Justine 9/24/20 at 1344, For 30 days
Maximum daily dose of acetaminophen is 3,000 mg from all sources in 24 hours.
[facility] Medication administered onsite maalox/lidocaine/diphenhydrAMINE (RADIAT ION MIXTURE) 1:1:1 oral suspension 10 mL 07/29/2020 01:44:17 PM EDT 10 mL Swish & Spit acti ve 10 mL, Swish & Spit, Every 2 hours PRN, For Mouth Pain, Starting Justine 07/29/20 at 1344, For 30 days [facility] Medication administered onsite Oxycodone Hydrochloride 5 MG Oral Tablet oxyCODONE (ROXICODONE) immediate release tablet 5 mg oxyCODONE (ROXICODONE) immediate release tablet 5 mg 07/29/2020 01:43:50 PM EDT 5 mg Oral active 5 mg, Oral, Every 4 hours PRN, Moderate Pain (Pain Scale Score 4-6), Starting Justine 07/29/20 at 1343, For 3 days
Oxycodone immediate release is limited to 10 mg per dose. Higher doses ( only) require Pain Service consultation and approval.
[facility] Medication administered onsite NaCl infusion 0.9 % [id number] 07/29/2020 11:00:00 AM EDT Intravenous active at 100 mL/hr, Intrav enous, Continuous, Starting Justine 07/29/20 at 1100, For 30 days [facility] Medication administered onsite celecoxib 100 MG Oral Capsule celecoxib (CELEBREX) cap alfa 100 mg celecoxib (CELEBREX) capsule 100 mg 07/29/2020 10:00:00 AM EDT 100 mg Oral completed 100 mg, Oral, Once, Justine 07/29/20 at 1000, For 1 dose
As soon as packing removed from mouth
[facility] Medication administered onsite maalox/lidocaine/diphenhydrAMINE (RADIAT ION MIXTURE) 1:1:1 oral suspension 10 mL 07/29/2020 09:58:26 AM EDT 10 mL Swish & Spit acti ve 10 mL, Swish & Spit, Every 2 hours PRN, For Mouth Pain, Starting Justine 07/29/20 at 0958, For 30 days, Recovery
Please give 1st dose in recovery room prior to transfer to the floor
[facility] Medication administered onsite fentaNYL (SUBLIMAZE) (PF) injection 12.5 mcg [id number] 07/29/2020 09:29:10 AM EDT 12.5 ug Intravenous active 12.5 mcg, Intravenous, Every 5 min PRN, Moderate Pain (Pain Scale Score 4-6), Starting Justine 07/29/20 at 0929, For 10 doses, Recovery [facility] Medication administered onsite Acetaminophen 325 MG Oral Tablet acetaminophen (TYLENO L) tablet 650 mg acetaminophen (TYLENOL) tablet 650 mg 07/29/2020 09:29:10 AM EDT 65 0 mg Oral completed 650 mg, Oral, O nce PRN, Mild Pain (Pain Scale Score 1-3), Pain, Starting Justine 07/29/20 at 0929, For 1 dose
Maximum daily dose of acetaminophen is 3,000 mg from all sources in 24 hours.
[facility] Medication administered onsite fentaNYL (SUBLIMAZE) (PF) injection 25 mcg [id number] 07/29/2020 09:28:59 AM EDT 25 ug Intravenous active 25 m cg, Intravenous, Every 5 min PRN, Severe Pain (Pain Scale Score 7-10), Starting Justine 07/29/20 at 0928, For 10 doses, [facility] Medication administered onsite Diazepam 5 MG Oral Tablet diazePAM 5 MG Oral Tablet (V ALIUM) diazePAM 5 MG Oral Tablet (VALIUM) 07/29/2020 12:00:00 AM EDT 5 mg Oral ac tive Take 1 tablet by mouth nightly for 7 days, Max Daily Dose: 5 mg [facility] maalox/lidocaine/diphenhydrAMINE 1:1:1 SWISH & SWAL oral brenda pension 07/29/2020 12:00:00 AM EDT 10 mL Swish & Spit active Swish and spit 10 mLs every 2 (two) hours as needed (For Mouth Pain)Pharmacy compound: Maalox, lidocaine viscous 2 %, Benadryl 12.5 mg/5 mL [facility] Docusate Sodium 100 MG Oral Capsule Docu sate Sodium 100 MG Oral Capsule (Colace) Docusate Sodium 100 MG Oral Capsule (Colace) 07/29/2020 12:00:00 AM EDT 100 mg Oral active Take 1 capsule by mouth Two Times Daily for 10 days [facility] Oxybutynin chloride 5 MG Oral Tablet Oxy butynin Chloride 5 MG Oral Tablet (DITROPAN) Oxybutynin Chloride 5 MG Oral Tablet (DITROPAN) 2019 12:00:00 AM EDT 5 mg Oral active Take 1 t ablet by mouth Three times daily for 7 days [facility] celecoxib 100 MG Oral Capsule Celecoxib 100 MG Oral Ca psule (CELEBREX) Celecoxib 100 MG Oral Capsule (CELEBREX) 07/29/2020 12:00:00 AM EDT 100 mg Or al active Take 1 capsule by mouth Two Time s Daily for 7 days [facility] Sulfamethoxazole 800 MG / Trimethoprim 1 60 MG Oral Tablet Sulfamethoxazole- Trimethoprim 800-160 MG Oral Tablet (Bactrim DS) Sulfamethoxazole-Trimethoprim 800-160 MG Oral Tablet (Bactrim DS) 07/29/2020 12:00:00 AM EDT 1 {tbl } Oral active Take 1 tablet by mouth Two T imes Daily for 7 days [facility] Acetaminophen 325 MG Oral Tablet Acetaminophen 325 MG Oral Tablet (Tylenol) Acetaminophen 325 MG Oral Tablet (Tylenol) 07/29/2020 12:00:00 AM EDT 650 mg Oral active Take 2 tablets by mouth every 6 (six) hours as needed for Pain for up to 10 days [facility] Acetaminophen 325 MG / Hydrocodone Richard trate 5 MG Oral Tablet HYDROcodone- Acetaminophen 5-325 MG Oral Tablet (LORTAB) HYDROcodone-Acetaminophen 5-325 MG Oral Tablet (LORTAB) 06/09/2020 12:00:00 AM EDT active TAKE TWO TABLETS BY MOUTH AT BEDTIME NEEDED MAX DAILY DOSE TWO TABLETS [facility] Sulfamethoxazole 800 MG / Trimethoprim 1 60 MG Oral Tablet [Bactrim] Bactrim DS 800-160 MG Bactrim DS 800-160 MG 04/23/2020 12:00:00 AM EDT 1.0 {table t} active Bactrim DS 800-160 MG eCW1 ( [facility]) Sulfamethoxazole 800 MG / Trimethoprim 1 60 MG Oral Tablet [Bactrim] Bactrim DS 800-160 MG Bactrim DS 800-160 MG 04/23/2020 12:00:00 AM EDT 1.0 {table t} active Bactrim DS 800-160 MG eCW1 ( [facility]) sildenafil 25 MG Oral Tablet [Viagra] Viagra 25 MG Viagra 25 MG 04/22/2020 12:00:00 AM EDT 1.0 {tablet_as_needed} active Viagra 25 MG eCW1 ([facility]) sildenafil 25 MG Oral Tablet [Viagra] Viagra 25 MG Viagra 25 MG 04/22/2020 12:00:00 AM EDT 1.0 {tablet_as_needed} active Viagra 25 MG eCW1 ([facility]) tizanidine 4 MG Oral Tablet tiZANidine HCl 4 MG Oral T ablet (ZANAFLEX) tiZANidine HCl 4 MG Oral Tablet (ZANAFLEX) 02/09/2020 12:00:00 AM EDT active TAKE ONE TABLET BY MOUTH EVERY E IGHT HOURS NEEDED [facility] Vitamin B 12 1 MG/ML Injectable Solution Cyanocobalamin 1000 MCG/ML Injection Solution (VITAMIN B12) Cyanocobalamin 1000 MCG/ML Injection Mili ution (VITAMIN B12) 11/08/2019 12:00:00 AM EST active INJECT ONE MILLILITER EVERY TWO WEEKS [facility] ELDERBERRY PO Oral aborted Take by mouth every morning [facility] Insurance Providers Payer name Policy type / Coverage type Policy ID Covered libertarian ID Covered libertarian's relationship to stokes Policy Stokes Plan Information [facility] PLAN [facility] [id number] SP [id number] [facility] Commercial Insurance Co. 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 Managed Care - [facility] Community Plan P [id number] S [id number] [facility] COMM[facility]ITY PL [id number] S [id number] [facility] COMM[facility] PLAN [facility] [id number] SP [id number] BC/BS Of [place] Medigap Part B Self Lifetime Benefit Solution Commercial Self [facility] Community Plan Health Maintenance Organization (HMO) Self [facility](MCAID) O [id number] S [id number] [facility] COMM PLAN [id number] 18 [id number] [facility] COMM[facility] [id number] SP [id number] [facility] MEDICAL CLAIMS -CLINIC [id number] 18 [id number] [facility]P [id number] 18 [id number] Problems, Conditions, and Diagnoses Code Display Name Description Problem Type Effective Dates Data Source(s) 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, acquired, situational, mild Problem 020 12:00:00 AM EDT eCW1 ([facility]) N35.819 Other urethral stricture, male, unspecif ied site Other urethral stricture, male, unspecified site Diagnosis 07/29/2020 09:59:44 AM EDT [facility] 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, 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 ther urethral bulbous stricture, male Diagnosis 07/29/2020 09:59:44 AM EDT [facility] Urethral stricture Urethral stricture Diagnosis 0 05:40:00 AM EDT [facility] URETHRAL STRICTURE URETHRAL STRICTURE Diagnosis 0 05:40:00 AM EDT [facility] Z20.828 Contact with and (suspected) exposure to other viral communicable diseases Contact with and (suspected) exposure to other viral communicable diseases Diagnosis 07/26/2020 11:55:58 AM EDT [facility] Surgeries/Procedures Procedure Description Date Indications Data Source(s) COMPLEX UROFLOMETRY COMPLEX UROFLOWMETRY Routine 08/06/2020 1 0:24 AM EDT Other stricture of bulbous urethra in male 08/06/2020 10:24: 14 AM EDT Other stricture of bulbous urethra in [facility] Other stricture of bulbous urethra in ks debora DUKE VIDEO DUKE VIDEO Routine 07/29/2020 7:03 AM EDT 07/29/2020 07:03:53 AM EDT [facility] COMPLEX UROFLOMETRY COMPLEX UROFLOWMETRY Routine 07/05/2020 5:39 PM EDT Other stricture of bulbous urethra in male 07/05/2020 05:39: 21 PM EDT Other stricture of bulbous urethra in [facility] Other stricture of bulbous urethra in ks debora RAJI POST-VOIDING RESIDUAL URINE&/BLDR CAP BLADDER SCAN, POST V OID Routine 07/05/2020 5:39 PM EDT Other stricture of bulbous urethra in male 07/05/2020 05:39: 21 PM EDT Other stricture of bulbous urethra in [facility] Other stricture of bulbous urethra in ma le Results ID Date Data Source [id number] 12/08/2020 12:00:00 AM EST [facility] Name Value Range Interpretation Code Description Data Mary rce(s) Supporting Document(s) SARS coronavirus 2 RNA [Presence] in Res piratory specimen by CONTRERAS with probe detection NEGATIVE [facility] This lab was ordered by Greer Stoner and reported by [facility]. ID Date Data Source [id number] 12/08/2020 12:00:00 AM EST [facility] Name Value Range Interpretation Code Description Data Mary rce(s) Supporting Document(s) Carestart Rapid COVID Antigen Test Negative [facility] This lab was reported by Greer ling. ID Date Data Source [id number] 10/25/2020 01:25:51 PM EST [facility] Name Value Range Interpretation Code Description Data Mary rce(s) Supporting Document(s) Progress Note [facility] DEEKOh3mNhYIGgKa91/EPMmdSBQjb7IaYBfpDHt1BVfrJLRtQ4WoMNP7rE0nLRD0ETgPBtSsNrDaRsZl [facility] ZhIxjFHuEaILJwGbtXBsIkIQooWliecZCoQA0KwLR3HKDcK95oXTKnDERyX6CvHZWpYwX+Dg8DPVLooG HeQS3TGbfA5Vvzh4xJ5YgP/fzTGxJQLre9o9tsyUGf1FVR5yjfgkgP8y+nPVhlRmXIJb7666bKEvHQqA JRjudjBDD0GC99rGb3e+fabOx73xl6ayNI00rmz/Ez SgTrjdmf/7CZc8FAWWh+EFWCP2BWzbg7MB9WcM1Izoxw+W3YQEuESvhu1mfZmYpJnJLb9T/evGKd/Thurman [file] JPbq57gAzxHw+Iic74+d3Sg/VxqWoMeN8PSpyfp4r2zWOysphc+/p51eE8ZvDn/COURT COMMISSIONER+pUit6l+PILsRim [file] YuPLOsHIU9WAYwVSmsNwM0CabmJmx4TqGjBJ3FOv2OWhN3MQS6dWAlOu0KBFDuKYZPHsYxLH5GKCw= ID Date Data Source [id number] 08/06/2020 10:56:27 AM EDT [facility] Name Value Range Interpretation Code Description Data Mary rce(s) Supporting Document(s) Progress Note [facility] LIXQZt5zPaAKRvIe40/KCPliXDRgw7WgPZxqULr6PAkwSHQkP5HlUIZ2jB5tJYH5PRsMHtNdYlXuSEWw lbm [file] ICAgICAgICAgICAgICAgICAgICAgICAgICAgICAgICAgICAgICAgICAgICAgICAgICAgICAgICAgICAg ICAgICAgICAgICAgICAgICAgICAgICAgICAgICAgICAgICAgDQogICAgICAgICAgICAgICAgICAgICAg ICAgICAgICAgICAgICAgICAgICAgICAgICAgICAgIC AgICAgICAgICAgICAgICAgICAgICAgICAgICAgICAgICAgICAgICAgICAgICAgDQogICAgICAgICAgIC AgICAgICAgICAgICAgICAgICAgICAgICAgICAgICAgICAgICAgICAgICAgICAgICAgICAgICAgICAgIC AgICAgICAgICAgICAgICAgICAgICAgICAgICAgDQog ICAgICAgICAgICAgICAgICAgICAgICAgICAgICAgICAgICAgICAgICAgICAgICAgICAgICAgICAgICAg ICAgICAgICAgICAgICAgICAgICAgICAgICAgICAgICAgICAgICAgDQogICAgICAgICAgICAgICAgICAg ICAgICAgICAgICAgICAgICAgICAgICAgICAgICAgIC AgICAgICAgICAgICAgICAgICAgICAgICAgICAgICAgICAgICAgICAgICAgICAgICAgDQogICAgICAgIC AgICAgICAgICAgICAgICAgICAgICAgICAgICAgICAgICAgICAgICAgICAgICAgICAgICAgICAgICAgIC AgICAgICAgICAgICAgICAgICAgICAgICAgICAgICAg DQogICAgICAgICAgICAgICAgICAgICAgICAgICAgICAgICAgICAgICAgICAgICAgICAgICAgICAgICAg ICAgICAgICAgICAgICAgICAgICAgICAgICAgICAgICAgICAgICAgICAgDQogICAgICAgICAgICAgICAg ICAgICAgICAgICAgICAgICAgICAgICAgICAgICAgIC AgICAgICAgICAgICAgICAgICAgICAgICAgICAgICAgICAgICAgICAgICAgICAgICAgICAgDQogICAgIC AgICAgICAgICAgICAgICAgICAgICAgICAgICAgICAgICAgICAgICAgICAgICAgICAgICAgICAgICAgIC AgICAgICAgICAgICAgICAgICAgICAgICAgICAgICAg ICAgDQogICAgICAgICAgICAgICAgICAgICAgICAgICAgICAgICAgICAgICAgICAgICAgICAgICAgICAg TVCaIHAzVCDkTBYoUGGnEXTwGUKuQFIcFTOwJTRaZRPuHTIaGUNjCPJvQEDzZZh1Q9grLQAtGBGgRE1z FOa4Rc5+OKhMWcYtFZB4cmHvmM4BWA4gl3TmGPvmAS Qtp4ScELd3QA1KBJEjCMjpXF4BRSwmkf6JTMZyGCPjyZZOf6otYhJrJTU5XGUnDifaVJ8URSXhG5feih OxFVKtMTATBLopGDHYTFvgPWGTOSRqDKRgYrZvWQbaHF7Ec7EbkBX2NHz+Ya9WTB2rc3IaNDcoUIInPT 9pol3DVUtRBdIwD9VryyU1FCW1QZXzEq7UNLYaLMLf fDCiMJIySKJTPfVtX3BeyB02XTWFIk5+KCoevmZnKisQRoL9MLGcc8WjSCf5QV7JWEAfSVf8fZCbCYPx J7Npa1SvSq24QZGhBqjjVK2liMYdxDXLgGoosOE2v8v2YGUORRImlLNoNR0mWdArEmXsJZH2NPIhTJ9u ZFalGE5JNBZ7SFgfMMAgLFQqG2nPLjRyLTUaLXEdhJ kkRP8VFaYpX9JkznEodUVsQMAlJJMTYo8+AUqphfClSxqKBcWbXLLwi0PtNCp3NC9XIWVwULdpXV1ODI TuaU6gUSuxLP2JWcOeDcAkLROZTaXhM48tmCRgRPm2N1JsExLiGZWgJlkxEAPmBFshBcCgPKYsWeEsOL ogID4+ID4+HPslCL2XIGfzksQyRHBrPe8EDGSiCLIm NH2kFZSqTVSjA5D3nEwkKONXCuVnK8xlgjqmNP3kRZBhD136eAiwnyXlSWA2MDGyUd7OHPTeCAC2IRPs iGEdElyvRKAWEJjaYP5MoKPjQMW9zC0bAOziCUMcNPQrQ5rYBqGlcPlzKN81uXiwefZiqOIjGZc+Pg0K ZO7lu6VcILu7sbLrZYhpFCUjCUhyHQNoEJHmNFVrAK M9PRV3RBYOZvNeGYOqQMLyXYmhFEOxVDTvmj6XJHVlXOXfRRGjJFTzXEBhIJQsOPajUJHgRVCuXLR9VY VyZWLuNH0MNdQfMNXrZKEjDQyyXQKfKEErfd7ORMXfBAEiGVTqUCNdQLVmMLUmICqiCHAfOON9YYHyYT QpCKOhYC3WDeRmNXPiMNi7CTLhTBOsZYHgam5KGGSq TCPyMes8UIRoYUPcHKQeBNgqUTPxXTLnGhUrHNJmFDZnCX5OIrMoSHTvQME1NBCxXJGfXCChtc5NIVCz HGMdFOtbWxHgFZQlCTHuQKraBUFxFFZbXVF0OAUiFESrLL5BUtShIQEsTWN2GBlfRHAbGSHube9CLMAn DMGlBuV6MSMkMCMxZEOmGCgqDUGfZYNmGgN5QYIiBE NnAF5GPdEmJMChGWZsJuxgDNNhYLThmg0CNPEeMCAuYHFhIEWaPDCnEVWpLSrpNTCqKVE9RmG8XAPyYB LoGW2QCfXbXHJaDkVhECiiDIUfGJEaun7RPDSkDKQiJuK1IwPpNZNhTCEiNGwvQSPdBGJ2DhftOQLcWS EbMT6IOcUzUGGiHrB0JdBlDRDaFGAwvm0LKQGpBBOx WfW7JmAbORUcXUPhYTlpOKJwMLR3JXSeJBNeWSTxVZ1QFvXxQVVlBsxjSFPaFACvVELttu7BWDIyRWXm KHP4VDEqMOAfGFKfBWniBWSvQFV8DAZ5KNIuGVYlJD1JWiXsARFmQdNiUpJqSJRoNVOjaj3NMRRrBRWm ZZIwWZWmNKHpOFWvKNhgIATnZHPvECt4IMApKNHhTF 0ALuPlTYywAQHATie9EIduZ8k5COMfOZ2CI7Wef7UmTuBwMLNPCBelFJ8cgwWfAWGvUs8DG4gHWdk8CM DbZMqjQui0FmQsGzT3SavsVRFzY0S0H2ViWRN4LT3fQLF4BtTuXlPePGhjOBNwOhmiCAOtZLGfJeYdUu QwOQO1QaDbRV3NIf8BFtC9CDG5gLApUd7BXwN1NtCRRiFqPF0ALWi= ID Date Data Source [id number] 08/03/2020 11:14:24 AM EDT [facility] Name Value Range Interpretation Code Description Data Mary rce(s) Supporting Document(s) Operative Note [facility] NKHJAd6yAvWDHrRp65/BCRodGQDph8WqLZmzEGi3SRqdTBLaJ9HmJUA8mF6uSJU9ZWrTEpNySfLiFYO0 lbm [file] SwKkES2TMm9BGyM2INQ1rWGmUi1OVXH7MbeJRnXqGZ5DLWp= ID Date Data Source [id number] 07/30/2020 04:58:45 PM EDT [facility] Name Value Range Interpretation Code Description Data Mary rce(s) Supporting Document(s) Progress Note [facility] HSGOSf7gMrSWEnRf28/JVJmbKAYfe0VhCJeeAPr0MDvcIJLkH4ZgPOS6jD7vURR7DGlIIrRrWyXbUHP2 lbm [file] iFOVLLxCHbmmt1Rg0rv2cpvPSSA8DcA7h4zT2uI2XdsqEbuziJAWUie/Sted3N8w6zgRctFk+OeCx/cardiac care nurse [file] AhPAFmXnOzBfE8DVn5KCZtRbXeWT9IXy9XAtB1QJL5iBKeQb5RDgMnGUZWGeGoTA8RLNg= ID Date Data Source [id number] 07/30/2020 08:44:25 AM EDT [facility] Name Value Range Interpretation Code Description Data Mary rce(s) Supporting Document(s) Discharge Summary [facility] PACAXv9eAtRVInKg87/WPJacVNXen0KvJXpiVTe6YMrwMIOgD5SgCQS5oN8gIBI6YTjLDbSdPrAxKAS4 lbm [file] ICAgICAgICAgICAgICAgICAgICAgICAgICAgICAgICAgICAgICAgICAgICAgICAgICAgICAgICAgICAg ICAgDQogICAgICAgICAgICAgICAgICAgICAgICAgIC AgICAgICAgICAgICAgICAgICAgICAgICAgICAgICAgICAgICAgICAgICAgICAgICAgICAgICAgICAgIC AgICAgICAgICAgICAgDQogICAgICAgICAgICAgICAgICAgICAgICAgICAgICAgICAgICAgICAgICAgIC AgICAgICAgICAgICAgICAgICAgICAgICAgICAgICAg ICAgICAgICAgICAgICAgICAgICAgICAgDQogICAgICAgICAgICAgICAgICAgICAgICAgICAgICAgICAg ICAgICAgICAgICAgICAgICAgICAgICAgICAgICAgICAgICAgICAgICAgICAgICAgICAgICAgICAgICAg ICAgICAgDQogICAgICAgICAgICAgICAgICAgICAgIC AgICAgICAgICAgICAgICAgICAgICAgICAgICAgICAgICAgICAgICAgICAgICAgICAgICAgICAgICAgIC AgICAgICAgICAgICAgICAgDQogICAgICAgICAgICAgICAgICAgICAgICAgICAgICAgICAgICAgICAgIC AgICAgICAgICAgICAgICAgICAgICAgICAgICAgICAg ICAgICAgICAgICAgICAgICAgICAgICAgICAgDQogICAgICAgICAgICAgICAgICAgICAgICAgICAgICAg ICAgICAgICAgICAgICAgICAgICAgICAgICAgICAgICAgICAgICAgICAgICAgICAgICAgICAgICAgICAg ICAgICAgICAgDQogICAgICAgICAgICAgICAgICAgIC AgICAgICAgICAgICAgICAgICAgICAgICAgICAgICAgICAgICAgICAgICAgICAgICAgICAgICAgICAgIC AgICAgICAgICAgICAgICAgICAgDQogICAgICAgICAgICAgICAgICAgICAgICAgICAgICAgICAgICAgIC AgICAgICAgICAgICAgICAgICAgICAgICAgICAgICAg ICAgICAgICAgICAgICAgICAgICAgICAgICAgICAgDQogICAgICAgICAgICAgICAgICAgICAgICAgICAg ICAgICAgICAgICAgICAgICAgICAgICAgICAgICAgICAgICAgICAgICAgICAgICAgICAgICAgICAgICAg MIMmEASuGKPqFBVdESk0P9ukMYGqEDWfCH3sSMj1Dk 8+JQmIPcKuORF7byIpvW8MSU9dd8AgDHaeKHMtd9RsESw3WG5YBOFiTNhcSU5HDWixdp9AWQCuHVExvV FRq9wfKkLtYEB0KUYbEkvaSS4CONIjI3lhsoVxZYGsARNQGSrhUQJKHQpdAZOARFLvVVNrHpQbKoZyMT BrVS7MWJMqA153kcOtDD3GWg3KWlDdFV7aot9RWlUz KEEjRieSQtm4TKktUH2ZvWFycZNxYyXqCXSCPfElH1oor0UeWwIwSJZQLBokUS7Hv6ZqnIYeNXb+Pg0K IL4dy1ZsAGxsRxPmOB0dkc3XGQqUTiQfE4BwvUpjCEWjf0GdRKBrVAIPeK8tHBH5DVA0ZVJccNVaxZfa Ipjxr6qnbpTgzOzyOHSdQMJvWM2eGH7lPDWzLEEsGg N7VPSKUT2RAWKtGXOlsCKcJEUnPBRBAV4AZHcfJEV9STPxujRsdBMsKLvbPG2SOAGkrtSxZdUsCRDHSV o+Vo0CRW1ro4KdMXuhKFXrHS6qsd4MECgVFySqV2B2vRZhV1J1SVysTw1JEFTdIZDaGhAbCCMSVTjnVI 5QFN8hwzQ7VH9EsFBuTYUnIBKrdWBoSGf3X21doSQe WFbqBR2BPAO+Omar+Fd3MOINxVJAwTNUyDiIsAKVSYqRkK3YbB2RYd3GeM6PnJA64mIknhcIvUKmgUH7X CQ6oIOFjWPCLBB5DrMFktQ2xrxVsPeZiRDXUHcNnL74trDArTCVuBQZkJEEiOo1WDRJmF5GtyrJgmBog zbHfUNYmYMDWVX8WUCbgfsZxnYFomOkkVZ58qHgoRM 0QSi6TZdAeWM8mon6LkELcDk7GSAEiBK2AHZAtRKQjHXSsJYC6SVOcPoVlFCunRUOyBTEwCBP9PXFfQR JzIS6APbEwXSKeDOX7GBzrQIOlVAVdna7AFDNrXVC2GsG5XdKvRUCbDPGkEVgqMHQuLZVoAZM4UMHqCF WrSI9WZmLiSWCiHXS3QsHrQJHvPAOvwg9TPROmTMMb RmK5HAXxUJRsUZFaWZnfTBFcEHP7Rvd9QOBqLRPmLE9AOmYaKBSfNVH7ExuyMSTrEXOjfy7XJTClMVQz XCV2XCIvJOKbRVEwVZlpYKMlVZYcKlmqKBSwXBViVB4DViWrMXHaJXEbWECqHRRyIHJhqj3IGYMwRUBx TIPgPXOrXIHgKZByHJijRVGcWHH3JNFqJOWcMSGaLD 7HVtCyUFChDQS6HJbzNHXmPZHcxo4PIGVxKFBnOgrkRHGsDHAzCLEgZYsdWBLyDFH6MIY5JBCyVPVwFS 7KFhObNEIpDNtwSGgpZEHmSPRgrd0LGJLgNMOeGQX4IrVdRNWsAMMmYVcuDJSzNLQ7LtO9BPEjPKHgOP 7KPnXkHTZyQQt9IonnEFAeTDElqv8CXTCqVWL9VFVq SlRfOARtLKDsIYhwHSBfFVD7DWIuIYUqTGBpRR4NPiBxMSZgIFrmACUrPNTmOMZhbq7AHBNfPDF3KPk2 QCGeWKRmSUXcUTfcMQDwEQWvWIKmMPFyVJXrFD7XWpScQHXrQYO7TiFlUKCbZLVtbz6BTFJlMLP1ZBS8 EVSdHJPsMHFwFIqaMPMdIAG3RutdHTVcERKsAS2UIx RvNDCmUES2GeOhBAUmEJKjiv8BIMJqNOV9NCO0NqUnUHUjQRVjLVygMMDdBEQ7TPGyZRBrLYMjAM6CAi KmVHHuUBa3HttdVOHiMJJfhm8HSGIlUCH0KiIjBUTnTATuHOUgWNqxDYJwEPE1Flc1UMQpPXMsUL1XUm KkZJfxWJPFXuz8KInbU3k7LUEqDP8MY7Jtt1UcDfBw DFYQHLksEM1jupXtCCAtNn2JJ4yVFblnEUPvFxZoDEY3P4PmYMUbKuC2UTRjUntzOmPxDRBsAg0kAPGh B2DpMAS5EUT9BrP1TmO1IextRONzK6HkF4JpKjF6MlEbLB5IYj5ULoH0KFB0aWHuLl9FSOuxTrlTErWg LP4LDHa= ID Date Data Source [id number] 07/29/2020 07:28:50 AM EDT [facility] Name Value Range Interpretation Code Description Data Mary rce(s) Supporting Document(s) History and Physical [facility] EPYWBf1xIlWLDxXo23/BINtbZQYsz1FoKPxeKAq9TMcjSMCnJ6EjSMG4eU3zRXT5JIaPWvCgEjEaOKY9 lbm [file] U+BL1kUSs+Lo6Ui7QihyS3pcFcJHu6GNoxUi4ZLHALP9OCSh== ID Date Data Source [id number] 07/26/2020 12:10:37 PM EDT [facility] Name Value Range Interpretation Code Description Data Mary rce(s) Supporting Document(s) Progress Note [facility] GWVFTt0uXjSKCzMp56/BECjtRFWsd4UfGBxxWVy0TTofJFHoI6RnDHZ2iB3qISR2EYtOYmTnBsWnSICz lbm [file] qgVtSDqgNZE4LX5NNTGPZ2GMDr== ID Date Data Source [id number] 07/27/2020 03:13:19 PM EDT [facility] Name Value Range Interpretation Code Description Data Mary rce(s) Supporting Document(s) Specimen source [Identifier] of Unspecified specimen [facility] SARS-CoV-2 RNA 2018 nCoV Real-Time RT-PCR: NOT DETECTED [facility] Assay Performed [facility] Initial validation was performed by the Centers for Disease Control and Prevention (CDC) and additionally validated by the Dept. of Pathology [facility]. Negative results do not preclude SARS-CoV-2 infection and should not be used as the sole basis for patient management decisions.Additional information is available on the following FDA websites for health care providers and patients. https://www.fda.gov/media/012617/download, https://www.fda.gov/media/253687/download. 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 [facility] Patient has symptoms related to [facility] When did you start to experience these symptoms [Date and time] [Phen X] [facility] Patient was hospitalized because of this condition [facility] patient was admitted to ICU for [facility] Reside in Group Setting [facility] status [facility] ID Date Data Source [id number] 07/26/2020 12:10:00 PM EDT [facility] Value Range Interpretation Code Description Data Mary rce(s) Supporting Document(s) SARS-CoV-2 RNA [facility] This lab was ordered by [facility] and reported by [facility]. ID Date Data Source [id number] 07/09/2020 12:30:[address] [facility] Current Medications: * VIT D * VIT C * E LDERBERRY * B12 * TIZANADINE * HYDROCODONE Current Allergies: * LATEX (Critical)* RED 40 DYE (Critical)* CORN SYRUP (Critical) Dental Chart: Procedures:Type - CDT Code - Description B - (D2392) Resin-based composite, 2 surfaces, posterior on Tooth # 14 on Tooth Surface OL (Performed by Blake Hennessy DDS) Chart Notes:suhail (Jul 09 2020 2:37PM): Rmhx (-) per pt no changesCC: none. Temperature: 97.4 passed covid questionsOperative: #14 OL - decay removed with highspeed bur, acid etching gel applied/rinsed/dried, self etching Futurabond M+ (Voco) placed and light-cured, A2 packable [place]o (Voco) composite placed and light-cured. Bite occlusion checked, adjusted, and polished.Anesthesia: 20% Benzocaine topical, 1 carp 4% Septocaine w/ 1:100,000 epi (UL Infil.)Additional PPE were used due to COVID-19. This included a minimum of a N95, a surgical mask, a hair covering, a face shield, proctective eyewear, and a gown.No complications. POI. Assisted by . Pt was cooperative.NV: 6mBlake Lundberg DDS by suhail (07/09/2020 2:37 PM): Tooth Notes and Watches: Assessment & Plan Medications:VIT DVIT PDWRSMWISUTA37TOGDSCVVBFYYPXYPVERYCShbawpbdm:* LATEX (Critical)* RED 40 DYE (Critical)* CORN SYRUP (Critical) Name Value Range Interpretation Code Description Data Mary rce(s) Supporting Document(s) ID Date Data Source [id number] 07/07/2020 08:41:23 AM [facility] Service Cmnt XXX-Imp : NoneMicroorganism XXX Cult : 50,000 col/mlIndigenous microorganisms. Name Value Range Interpretation Code Description Data Mary rce(s) Supporting Document(s) ID Date Data Source [id number] 07/05/2020 06:04:31 PM EDT [facility] Name Value Range Interpretation Code Description Data Mary rce(s) Supporting Document(s) Progress Note [facility] KYFAWy0bNdLTCxFy54/XVAmdOXMdh8BrAEedWSk2TDmhKQPvQ3YqFRA2iF4sJRN7YYpDZqRmXlChKUMp lbm [file] ICAgICAgICAgICAgICAgICAgICAgICAgICAgICAgICAgICAgICAgICAgICAgICAgICAgICAgICAgICAg ICAgICAgICAgICAgICAgICAgICAgICAgICAgICAgICAgICANCiAgICAgICAgICAgICAgICAgICAgICAg ICAgICAgICAgICAgICAgICAgICAgICAgICAgICAgIC AgICAgICAgICAgICAgICAgICAgICAgICAgICAgICAgICAgICAgICAgICAgICANCiAgICAgICAgICAgIC AgICAgICAgICAgICAgICAgICAgICAgICAgICAgICAgICAgICAgICAgICAgICAgICAgICAgICAgICAgIC AgICAgICAgICAgICAgICAgICAgICAgICAgICANCiAg ICAgICAgICAgICAgICAgICAgICAgICAgICAgICAgICAgICAgICAgICAgICAgICAgICAgICAgICAgICAg ICAgICAgICAgICAgICAgICAgICAgICAgICAgICAgICAgICAgICANCiAgICAgICAgICAgICAgICAgICAg ICAgICAgICAgICAgICAgICAgICAgICAgICAgICAgIC AgICAgICAgICAgICAgICAgICAgICAgICAgICAgICAgICAgICAgICAgICAgICAgICANCiAgICAgICAgIC AgICAgICAgICAgICAgICAgICAgICAgICAgICAgICAgICAgICAgICAgICAgICAgICAgICAgICAgICAgIC AgICAgICAgICAgICAgICAgICAgICAgICAgICAgICAN CiAgICAgICAgICAgICAgICAgICAgICAgICAgICAgICAgICAgICAgICAgICAgICAgICAgICAgICAgICAg ICAgICAgICAgICAgICAgICAgICAgICAgICAgICAgICAgICAgICAgICANCiAgICAgICAgICAgICAgICAg ICAgICAgICAgICAgICAgICAgICAgICAgICAgICAgIC AgICAgICAgICAgICAgICAgICAgICAgICAgICAgICAgICAgICAgICAgICAgICAgICAgICANCiAgICAgIC AgICAgICAgICAgICAgICAgICAgICAgICAgICAgICAgICAgICAgICAgICAgICAgICAgICAgICAgICAgIC AgICAgICAgICAgICAgICAgICAgICAgICAgICAgICAg ICANCiAgICAgICAgICAgICAgICAgICAgICAgICAgICAgICAgICAgICAgICAgICAgICAgICAgICAgICAg ICAgICAgICAgICAgICAgICAgICAgICAgICAgICAgICAgICAgICAgICAgICANCjw/sGIlL2yvuPQaqgA8 E2uxHk3XCg0SPZ8vk9KmALGnRKzkrdOgCtcKRgMyWJ LqZxaMOjo2BGxbFO5DeALhA4ArG1GcLTvxFL5UKBCkOUDiwLJwLEEuLNAcYxM9XJArWZgzYI8FqWHqBN lxEETtLRYiKeWrHUKlUOQsQEDfSI7AWSWdS585kaUnOp8DNa7PSjVbRU9sbx7VDsUhAHIdPkgSAqc0AR yvDD1PcSWdyDHlKzLwNFVESnQkS1eim6JjSgguBVVJ CNvqMZ8Sv6JdrVHsPZf+Pd4STV8sx8TlOSgoIeHwAJ9lbi5ZPNkNBrFdE1ZstTryWJTbf6dhUKLhPM1g hAMbDLC7KCHyhPNzmMubEfsqf3kwvhChoYfhQQPaCUGvQH1nCU5tPINyGSB6MePpBNZVXV2ZRECyDZQq gBHrDAVdDEHPPA8EKQqlDSN3FQIggsHmcQQsUJeiSX 9QYXJlbnQgMjYgMCBSDQo+Rb6QMI3kp9UdQIeoXVYhEL7yvi8UFKtCFpSsJ3X3xQTdH4Q8YTfrHq8UYQ HoTCNsGsGzBWMXDBxoSM5FJX0iomZ1QW1MzCKvEISgXDLaxTXiCXq3K04spYFjAUmcHE7RXYD+Omar+Pg 3KBMReHGYtPJOeNeTgTCJQGjMhC0DnK7KOh5XxZ4Le IN31pNlmouDyURuwFC6TCR1xVVNpMNQPXN8EkGXafC5hbdBuSkSlNBOZVhCcZ05qjRHoLHViYNN2ZNKw Pp4BLKTiD4ZvlbLenLzigkHvNAVfUKFFNF2PKDpjwvNdgOGgvWbuQP70cYciKT3QFp7AJwAwZC3rls2Y xPVlLs5MGLMwVD7BZYYtBFHlLCXxWZB0OWInGaGoWX qdOKTmHESkSNY5GMKdBXEkJN6SYrTeKAMaPnX1AGKhJUHkAGGpau2NTJHnVJLwZyNgUZJwRCVcUCDxYB xfYJTgIFLkHXT4PCAmLIBiAQ0SPvUhFRSgGSOaVJHpRTUtDGLcmm3WOXTdGUVxXCA1KkSiUWSjINTdOI tzYYOeBSQ5QWn5BIOaQURoYZ6BPrOyIVVlTVkdQdrk XDQtPXKigf3IJPQiJDDgPVS3PvIpEIMmQUNhWOtsRPAeJDM9GiIwTHErOAIgRD2VDtApFOPmCDSeKqOp FWXyYRAklk2SSMCzUUYsLWK2ZbFqUIZcAQNgCZdoSSEyQEGfPcNeILKfALBjVC4JJuQtTFTkKNO2KHzj GGMzWETasf7UZCArEHOnLLhsOBTdFQCxYUGfBYstXW GlWSPiKBg1ZZYrWNKoTS9XMdZeHIRfQeM9GNedBZZpVXKpbt4RWFZzSHKgMte8DQShUMQbILVeEUdeBO ScSLErOGIvOOBdYHXqIM9ZGpVjCXMrLsAaMHPkXRNhUUMyyv8IDSZmWFObSEO9XGYnOLEbCDBlGIhqXI WyZIC5EnksREVkPGYnZO4QWoRaMTBbBaW6SCHoXNXd KPLewg0PZZNuLEJcMJP9PTRoCEVuKNFtKMhrZPKbATA0XYq8FZRbGRKxYA7KWvFlDEOiAxb9ByxiYUOc BGDbxb1GIFDvMLVuTtF7APCqDJOjPIIbGOmhZFHhMBI5FoOqVHYcDAWqKD0PLsEqROflXKVRBqa7BDyl J9e3GNYaNK4CH9Sgy7OdWxylBJIAXOyrRY7fntEqRE GmNd2HL2lQPod0OBi1CkX5PfvfOCK0RNLeUzErZVRiH3XdPTX4PGH9RA2eJVYdLBGbUJwdZ0U4GZShTi MwMvR4MGDnIAWiJqGcXhizQoCdMV1ZOy0SIxX0AWW6jFSkLa3SSld0JWWLAfQuWE5GQTb= ID Date Data Source [id number] 07/05/2020 09:02:33 PM EDT [facility] Name Value Range Interpretation Code Description Data Mary rce(s) Supporting Document(s) Color of Urine [facility] Clarity of Urine [facility] Specific gravity of Urine by Refractometry automated 1.012 1.003 -1.030 [facility] pH of Urine by Automated test strip 6.0 5.0-8.0 [facility] Protein [Mass/volume] in Urine by Automated test strip Neg [facility] Glucose [Mass/volume] in Urine by Automated test strip Neg [facility] Ketones [Mass/volume] in Urine by Automated test strip Neg [facility] Bilirubin.total [Presence] in Urine by Automated test strip Negative [facility] Hemoglobin [Presence] in Urine by Automated test strip Neg [facility] Leukocyte esterase [Presence] in Urine by Automated test strip Negative [facility] Nitrite [Presence] in Urine by Automated test strip Negati [facility] Leukocytes [#/area] in Urine sediment by Automated count 0 /HPF 0 -5 [facility] Erythrocytes [#/area] in Urine sediment by Automated count 0 /HPF 0-3 [facility] ID Date Data Source [id number] 06/14/2020 02:40:57 PM EDT [facility] Name Value Range Interpretation Code Description Data Mary rce(s) Supporting Document(s) Progress Note [facility] HRZRWm5xDkQZVzYq71/EXIbrUTMct2AdTJxxUEe1EThaQZVjC1UgMYS1pW0yMKC3OItJWoLwVfZoFAZb lbm [file] ICAgICAgICAgICAgICAgICAgICAgICAgICAgICAgICAgICAgICAgICAgICAgICAgICAgICAgICAgICAg ICAgICAgICAgICAgICAgICAgICAgICAgICAgICAgICAgICANCiAgICAgICAgICAgICAgICAgICAgICAg ICAgICAgICAgICAgICAgICAgICAgICAgICAgICAgIC AgICAgICAgICAgICAgICAgICAgICAgICAgICAgICAgICAgICAgICAgICAgICANCiAgICAgICAgICAgIC AgICAgICAgICAgICAgICAgICAgICAgICAgICAgICAgICAgICAgICAgICAgICAgICAgICAgICAgICAgIC AgICAgICAgICAgICAgICAgICAgICAgICAgICANCiAg ICAgICAgICAgICAgICAgICAgICAgICAgICAgICAgICAgICAgICAgICAgICAgICAgICAgICAgICAgICAg ICAgICAgICAgICAgICAgICAgICAgICAgICAgICAgICAgICAgICANCiAgICAgICAgICAgICAgICAgICAg ICAgICAgICAgICAgICAgICAgICAgICAgICAgICAgIC AgICAgICAgICAgICAgICAgICAgICAgICAgICAgICAgICAgICAgICAgICAgICAgICANCiAgICAgICAgIC AgICAgICAgICAgICAgICAgICAgICAgICAgICAgICAgICAgICAgICAgICAgICAgICAgICAgICAgICAgIC AgICAgICAgICAgICAgICAgICAgICAgICAgICAgICAN CiAgICAgICAgICAgICAgICAgICAgICAgICAgICAgICAgICAgICAgICAgICAgICAgICAgICAgICAgICAg ICAgICAgICAgICAgICAgICAgICAgICAgICAgICAgICAgICAgICAgICANCiAgICAgICAgICAgICAgICAg ICAgICAgICAgICAgICAgICAgICAgICAgICAgICAgIC AgICAgICAgICAgICAgICAgICAgICAgICAgICAgICAgICAgICAgICAgICAgICAgICAgICANCiAgICAgIC AgICAgICAgICAgICAgICAgICAgICAgICAgICAgICAgICAgICAgICAgICAgICAgICAgICAgICAgICAgIC AgICAgICAgICAgICAgICAgICAgICAgICAgICAgICAg ICANCiAgICAgICAgICAgICAgICAgICAgICAgICAgICAgICAgICAgICAgICAgICAgICAgICAgICAgICAg ICAgICAgICAgICAgICAgICAgICAgICAgICAgICAgICAgICAgICAgICAgICANCjw/nPKxF3dlhAOsetI5 T2dqBp7WXp8HKT7os6WzCTNyEMzkcqBfOxgOAnBqZD LcEldRZqq9IHniOO3YvHZnC3OzT8HrIRqlIH9DROLdWVBnkHWmFLSmDHNpJfY5PQRfBEhrTE5ZhTPhZU vmPVMnFNQyJoEkAMQzRPVzCHKaRUVhRNAPRK5NNtRdC4PyhV60NETYJj3+LQfeihAyMfdRGaO8ZVFpk8 MuNVs0DS9BPBNzPjaqh4FwMhrcMJIVIApqSR2HFVX0 BPK0NZJkJd1WLGPtW352nwYnZH7WDa7BRaIeCR1ngn4OSdrmTMPgWiuDYmu8EVfbOA1IfKNsRGxBre6y alUslrNXi0BykvMnrPKKvCe5tdi3OH9qe25tYFXmt2deLP1HGIX9UEsfRRBsRzNkLOIyHEhpFUBYGLnK XsPbQ0Efl0BgYhD8TWXnAaVoKPliPLEkXuY6JQ55xO ycVE9TZACwOVWeDP34LLJ1OSVzFw4XQq3QIeDsGQ3luv3SIjVbVDAdCzfXZhp3OYrzZK2GeURnR3TnjT Faj3jHQhVmA7JGCFB6VMRpWj4SUCEzMvNqSMEnHFecBR5yMNRcGLJJjYdmevR1NV1OBQ4cfxHcYT4FLv RsNk4kFh1ISaXzJ6VhS6WdBMPjOIGJIFtnNJ2OHJuw JW3fVQ3Kn1JTaJIwxJ3mdt0KGSSnNJSaUeajzk2YRsrdX7B8lSbrWPEmHmavLULMOBsaNT7XABVxIUA3 UFPoOeGvHMVVOiPlF99yDQ3DT1Cgi70xVbS7PAAvFmMkWZnfLM48jNixgrIjdMMheBpdNQ0VXx5+DQpl bmRvYmoNCnhyZWYNCjAgMzENCjAwMDAwMDAwMDAgNj S8McPiRw3PCOLyNINoQYXdVuYdPWYiJXVlFSphNXKmYRB7CdU6FNCoSMYmOK7EOmKwUZIaDsAgHKAkYQ OlPCDexw9BMDEdATCtSUS2UjZdMJCyHMZhSQfgJQIxZWXoOsM2XCWpJXIpLS6ZLtZoLZZpTMH1JyMdLP OzKMWymd8MBRJuBUVzNuQ8GHDpRPLnKLNwELzfKCKm JTB3MCo2YBOsNIHfGM3EZsBsKCLjEHc6CidlHDBiYXQffu3UMTYuKMJlMYA1YuEwAFFoJJKkXSsqKWCm IHBeCrQfFORfLGXhFF3DIqHvEITcKMT6WoFaUQZgPZYntk5SXNCvUXVsXio4DpShRLFnBQOuYDdsXMXt ILZ0VKtgXSTjKMXjZX8CSvOgQTDyNENyLaMcMBAtRG Ddwe0PBYKiTPDjQRClJXQcXLHuXSHjJGxoVXXaJON0TEH4THIhHPRhWT9THmIrEIFuOEW0VuAfQCNwWC Avzl8DAZBsULHnFiY0YZJlJQReWJXeEZkfKYVlYKZ7XlykDVJoQVLlFN4EKqGjQNSrHgg4NTkbEKWmTT Yyxg3TVDYiILLiLnooVMHbOTWiDEScWKdiDFLoZIB5 HOp5PMHeCODvJJ0KWoZoKLOlHsz0UginYTFqBJRpdl2RMRGqCQXnNLAnWQOfZXIaZUHuHWnpHROjXXI7 Sor5VEBvMYOfTE0KDoVxFVHzBtn8XWDcGGShFOUjwu2EMKLcLHNaDSO3SDDbVCAwGSLcVRpsWKZaGKVw RmHwVQSdKYDvEA3HGjTpTJZuLfOsQXZcJNEqCRQspr 4QxCWmaTyawg3UCPpVMr5HtXcvFCYuZBsuRw1qlLAtRQThMQHNKm3QvcGaYNQxXOHQNHfgXHGjKFcdIw YnFZDjMlQjPUMnFeFqATW0UYDsBxDwDkZ0PWToZnN1XBO1KcPuCLC2GeMvSWZ5QOElQkx7YPJmCnV3IL Q0ZGI+NB6pZUc+Yd[id number]== ID Date Data Source [id number] 06/08/2020 01:47:[address] [facility] Vital SignsBlood Pressure: 150/94 Patient History Medical History:Chronic painSurgical History:Rhinoplasty - deviated septumuritstasocpywisdom teeth removeddental surgery on fused molar at [age]yrs oldSocial/Personal History: Smoking Status: never smokerAlcohol Use: CurrentlyDrug Use: NeverDo you vape? NoChief Complaint: Routine CleaningVisit Type: ExamProblem list reviewed during this update.No known problems.Current Medications: * VIT D * VIT C * ELDERBERRY * B12 * TIZANADINE * HYDROCODONE Medication list reviewed during this update.Current Allergies: * LATEX (Critical)* RED 40 DYE (Critical)* CORN SYRUP (Critical)Allergy list reviewed during this update.No known allergies.Past Medical History:(reviewed - no changes required) Chronic pain Dental Chart: Procedur es:Type - CDT Code - Description B - (D0150) Comprehensive oral evaluation - new or established patient (Performed by Blake Hennessy DDS) B - (D1110) Prophylaxis, adult (Performed by Victor Manuel ADANYue) B - (D0210) Intraoral, complete series of radiographic images (Performed by Victor Manuel ADANYue) Treatments:Type - CDT Code - Description T - (D2392) Resin-based composite, 2 surfaces, posterior on Tooth # 14 on Tooth Surface OL (Performed by Victor Manuel ADANYue) Existing:Type - CDT Code - Description[E] [employer] On #15 Surface OL, #19 Surface DO, #29 Surface OD, #3 Surface MO, #30 Surface MO, #4 Surface OD[E] Resin-Based Composite - Direct On #12 Surface B, #13 Surface B, #25 Surface IMLF, #8 Surface ML[E] Missing - Mesic and Root On #1 Surface O Region XR, #16 Surface O Region XR, #17 Surface O Region XR, #2 Surface O Region XR, #31 Surface O Region XR, #32 Surface O Region XR Chart Notes:mjain (Jun 09 2020 1:30PM): RM[facility]: New pt; Chronic leg painAllergies: [place] syrup, latex, red 40 dye CC: none. Reviewed Xrays. Exam: caries detected. OCS: WNL, IO/ EO completed, No significant hard findings upon clinical exam.Additional PPE requirements due to COVID-19 in the dental setting, N95, surgical mask, hair covering, gown and shieldPt was cooperative. OHI given Referral: N/A NV:restorationYue Rush RDH by suhail (06/09/2020 1:30 PM): ; chung (Jun 09 2020 1:23PM): CC: Establish dental home - pt hasn't been to the dentist in 2 yearsRMH: New pt; Chronic leg painAllergies: [place] syrup, latex, red 40 dyeSmoking Status: NeverBP: See BP log - Taken today - BP high encouraged pt to see GP. Temp: 97.7EO/IO: Oral cancer screening performed - no abnormalites noted; normal mucosa with no white or raised patches. No lymphadenopathy. No poping or clicking of the TMJ. Pt has fair oral health and good oral hygiene. One area of decay per doc. Pt reports he brushes 2xday and tries to floss. Behavior: Very compliantTX: Adult prophy, Perio charting, FMX, and exam by Dr. Hennessy. Additional PPE used due to COVID-19. This included a minimum of a N95, a surgical mask, a hair covering, a face shield, proctective eyewear, a gown, and additional barriers.OHI: Spoke to pt about brushing and flossing. NV: Restorative. 6MYue Fitch RDH by chung (06/08/2020 4:34 PM): Tooth Notes and Watches: Assessment & Plan Medications:VIT DVIT [id number] Changes:Added: * HYDROCODONE* TIZANADINE* B12* ELDERBERRY* VIT C* VIT DAllergies:* LATEX (Critical)* RED 40 DYE (Critical)* CORN SYRUP (Critical) _ Name Value Range Interpretation Code Description Data Mary rce(s) Supporting Document(s) ID Date Data Source [id number] 05/16/2020 10:20:00 AM EDT [facility] Name Value Range Interpretation Code Description Data Mary rce(s) Supporting Document(s) SARS coronavirus 2 RNA [facility] This lab was ordered by [facility] and reported by [facility]. Procedure Social History Code Duration Value Status Description Data Source(s ) Alcohol intake 10/25/2020 12:00:00 AM EST Current drinker of al cohol (finding) completed Current drinker of alcohol (finding) [facility] Tobacco use and exposure 10/25/2020 12:00:00 AM EST Never used co mpleted Never used [facility] Smoking 10/25/2020 12:00:00 AM EST Never smoker completed Never s scker [facility] Alcohol intake 08/06/2020 12:00:00 AM EDT Current drinker of al cohol (finding) completed Current drinker of alcohol (finding) [facility] Alcohol intake 07/30/2020 12:00:00 AM EDT Current drinker of al cohol (finding) completed Current drinker of alcohol (finding) [facility] Alcohol intake 07/29/2020 12:00:00 AM EDT Current drinker of al cohol (finding) completed Current drinker of alcohol (finding) [facility] Alcohol intake 07/05/2020 12:00:00 AM EDT Current drinker of al cohol (finding) completed Current drinker of alcohol (finding) [facility] Vital Signs ID Date Data Source UNK Name Value Range Interpretation Code Description Data Source(s) Diastolic blood pressure 80 mm[Hg] 80 mm[Hg] eCW1 ([facility]) Systolic blood pressure 124 mm[Hg] 124 mm[Hg] e CW1 ([facility]) Body temperature 96.0 [degF] 96.0 [degF] eCW1 ( [facility]) Respiratory rate 20 /min 20 /min eCW1 ([facility]) Heart rate 70 /min 70 /min eCW1 ([facility]) Body mass index (BMI) [Ratio] 36.27 kg/m2 36.27 kg/m2 eCW1 ([facility]) Body height 76 [in_i] 76 [in_i] eCW1 ([facility]) Body weight 298 [lb_av] 298 [lb_av] eCW1 ([facility]) ID Date Data Source [id number] 10/26/2020 08:43:19 AM [facility] Value Range Interpretation Code Description Data Source(s) WEIGHT RECORDED 306 lb 306 lb [facility] Body height Measured 75.98 in 75.98 in [facility] ID Date Data Source [id number] 08/13/2020 11:09:[address] [facility] Value Range Interpretation Code Description Data Source(s) WEIGHT RECORDED 300.8 lb 300.8 lb [facility] ID Date Data Source [id number] 08/09/2020 09:01:[address] [facility] Value Range Interpretation Code Description Data Source(s) WEIGHT RECORDED 299 lb 299 lb [facility] ID Date Data Source [id number] 07/30/2020 04:58:[address] [facility] Value Range Interpretation Code Description Data Source(s) Body height Measured 75.98 in 75.98 in [facility] ID Date Data Source [id number] 08/03/2020 11:14:[address] [facility] Value Range Interpretation Code Description Data Source(s) WEIGHT RECORDED 296.4 lb 296.4 lb [facility] ID Date Data Source [id number] 07/07/2020 09:44:[address] [facility] Value Range Interpretation Code Description Data Source(s) WEIGHT RECORDED 302 lb 302 lb [facility] ID Date Data Source [id number] 06/15/2020 08:15:[address] [facility] Value Range Interpretation Code Description Data Source(s) WEIGHT RECORDED 302 lb 302 lb [facility] Body height Measured 76 in 76 in [facility] Patient Treatment Plan of Care Planned Activity Planned Date Details Description Data Source (s) Elderberry 575 MG/5ML Oral Syrup 08/05/2020 12:00:[address] [facility] celecoxib 100 MG Oral Capsule 07/30/2020 12:00:[address] [facility] Diazepam 5 MG Oral Tablet 07/29/2020 10:00:[address] [facility] Docusate Sodium 100 MG Oral Capsule 07/29/2020 09:00:[address] [facility] Oxybutynin chloride 5 MG Oral Tablet 07/29/2020 05:00:[address] [facility] Cefazolin 2000 MG Injection 07/29/2020 04:00:[address] [facility] heparin (porcine) 5000 UNIT/ML injection 5,000 Units 020 01:45:[address] [facility] Acetaminophen 325 MG Oral Tablet 07/29/2020 01:44:[address] [facility] maalox/lidocaine/diphenhydrAMINE (RADIAT ION MIXTURE) 1:1:1 oral suspension 10 mL 07/29/2020 01:44:17 PM [facility] ondansetron (ZOFRAN) injection 4 mg 07/29/2020 01:44:[address] [facility] fentaNYL (SUBLIMAZE) (PF) injection 12.5 mcg 07/29/2020 09:29:[address] [facility] fentaNYL (SUBLIMAZE) (PF) injection 25 mcg 07/29/2020 09:28:59 AM [facility] maalox/lidocaine/diphenhydrAMINE 1:1:1 SWISH & SWAL or al suspension 07/29/2020 12:00:00 AM [facility] Acetaminophen 325 MG Oral Tablet 07/29/2020 12:00:[address] [facility] Docusate Sodium 100 MG Oral Capsule 07/29/2020 12:00:[address] [facility] Diazepam 5 MG Oral Tablet 07/29/2020 12:00:[address] [facility] Sulfamethoxazole 800 MG / Trimethoprim 160 MG Oral Tab let 07/29/2020 12:00:00 AM [facility] celecoxib 100 MG Oral Capsule 07/29/2020 12:00:[address] [facility] Oxybutynin chloride 5 MG Oral Tablet 07/29/2020 12:00:[address] [facility] Acetaminophen 325 MG / Hydrocodone Bitartrate 5 MG Ora l Tablet 06/09/2020 12:00:00 AM EDT [facility] Sulfamethoxazole 800 MG / Trimethoprim 160 MG Oral Tab let [Bactrim] 04/23/2020 12:00:00 AM EDT eCW1 ([facility]) Sulfamethoxazole 800 MG / Trimethoprim 160 MG Oral Tab let [Bactrim] 04/23/2020 12:00:00 AM EDT eCW1 ([facility]) sildenafil 25 MG Oral Tablet [Viagra] 04/22/2020 12:00:00 AM EDT eCW1 ([facility]) sildenafil 25 MG Oral Tablet [Viagra] 04/22/2020 12:00:00 AM EDT eCW1 ([facility]) tizanidine 4 MG Oral Tablet 02/09/2020 12:00:[address] [facility] Vitamin B 12 1 MG/ML Injectable Solution 11/08/2019 12:00:00 AM [facility] ELDERBERRY [facility]
[2020-12-26] MEDS ORDERED: FLUORESCEIN OPHTH 1 MG STRIP OS ONE (03:30)
[2020-12-26 03:56] VITALS: BP 160/98
--- OUTSIDE RECORDS SUMMARY | 2020-12-26 04:15 | CCD ---
Author Author [facility] Organization [facility] Address Unknown Phone Unavailable Care Team Providers Care Assurance Services Manager Health Care Name Role Phone ERIN JOHNSON Unavailable Unavailabl e [facility], MJAIN Unavailable Unavailable [...] SOSA Unavailable Unavailable RASHAAD IV, L YANN ANIMAL SHELTER MANAGER Unavailable Unavailable RASHAAD IV, L YANN ANIMAL SHELTER MANAGER Unavailable Unavailable RASHAAD IV, L YANN ANIMAL SHELTER MANAGER Unavailable Unavailable RASHAAD IV, L YANN ANIMAL SHELTER MANAGER Unavailable Unavailable RASHAAD IV, L YANN ANIMAL SHELTER MANAGER Unavailable Unavailable RASHAAD IV, L YANN ANIMAL SHELTER MANAGER Unavailable Unavailable RASHAAD IV, L YANN ANIMAL SHELTER MANAGER Unavailable Unavailable RASHAAD IV, L YANN ANIMAL SHELTER MANAGER Unavailable Unavailable RASHAAD IV, L YANN ANIMAL SHELTER MANAGER Unavailable Unavailable RASHAAD IV, L YANN ANIMAL SHELTER MANAGER Unavailable Unavailable RASHAAD IV, L YANN ANIMAL SHELTER MANAGER Unavailable Unavailable RASHAAD IV, L YANN ANIMAL SHELTER MANAGER Unavailable Unavailable RASHAAD IV, L YANN ANIMAL SHELTER MANAGER Unavailable Unavailable RASHAAD IV, L YANN ANIMAL SHELTER MANAGER Unavailable Unavailable RASHAAD IV, L YANN ANIMAL SHELTER MANAGER Unavailable Unavailable RASHAAD IV, L YANN ANIMAL SHELTER MANAGER Unavailable Unavailable RASHAAD IV, L YANN ANIMAL SHELTER MANAGER Unavailable Unavailable RASHAAD IV, L YANN ANIMAL SHELTER MANAGER Unavailable Unavailable RASHAAD IV, L YANN ANIMAL SHELTER MANAGER Unavailable Unavailable RASHAAD IV, L YANN ANIMAL SHELTER MANAGER Unavailable Unavailable RASHAAD IV, L YANN ANIMAL SHELTER MANAGER Unavailable Unavailable RASHAAD IV, L YANN ANIMAL SHELTER MANAGER Unavailable Unavailable RASHAAD IV, L YANN ANIMAL SHELTER MANAGER Unavailable Unavailable RASHAAD IV, L YANN ANIMAL SHELTER MANAGER Unavailable Unavailable RASHAAD IV, L YANN ANIMAL SHELTER MANAGER Unavailable Unavailable RASHAAD IV, L YANN ANIMAL SHELTER MANAGER Unavailable Unavailable RASHAAD IV, L YANN ANIMAL SHELTER MANAGER Unavailable Unavailable RASHAAD IV, L YANN ANIMAL SHELTER MANAGER Unavailable Unavailable RASHAAD IV, L YANN ANIMAL SHELTER MANAGER Unavailable Unavailable RASHAAD IV, L YANN ANIMAL SHELTER MANAGER Unavailable Unavailable RASHAAD IV, L YANN ANIMAL SHELTER MANAGER Unavailable Unavailable RASHAAD IV, L YANN ANIMAL SHELTER MANAGER Unavailable Unavailable Feola, T Molly PA Unavailable [...] is protected by Article 27-F of the [facility] Public Health law. If you continue you may have access to information: Regarding HIV / AIDS; Provided by facilities licensed or operated by the [facility] Office of Mental Health; or Provided by the [facility] Office for People With Developmental Disabilities. If such information is present, then the following [facility] mandated warning applies: This information has been [...] law may result in a fine or longterm sentence or both. A general authorization for the release of medical or other information is NOT sufficient authorization for further disc losure. Allergies and Adverse Reactions Type Description Substance Reaction Status Data Source(s ) DRUG INGREDI GLUCOSE GLUCOSE Rash [facility] DRUG INGREDI RED DYE RED DYE Hives [facility] DRUG INGREDI LATEX Latex Rash [facility] Chemical ADHESIVE TAPE ADHESIVE TAPE Rash [facility] Food allergy CORN SYRUP CORN SYRUP [facility] Food allergy RED 40 DYE RED 40 DYE [facility] Miscellaneous allergy LATEX LATEX [facility] Family History Family Member Name Family Member Gender Family Member Status Date o f Status Description Data Source(s) Unknown Unknown Problem [facility] ([facility] Encounters Encounter Providers Location Date Indications Data Source(s ) Outpatient Attender: Vinny Aburto MD 02/21/2021 12:0 0:00 AM [facility] Outpatient Attender: Molly FISHER 021 01:01:05 PM EST - 12/08/2020 01:39:33 PM EST [facility] ([facility] ) Outpatient Attender: Vinny Aburto MD [id number] 10/25/2020 12:00:00 AM EST - 10/25/2020 11:11:32 AM EST Other urethral stricture, male, unspecif ied [facility] Other urethral stricture, male, unspecif ied site Outpatient Attender: YANN NEIL IV ED-HCCEDWPCP 2019 07:13:00 AM EDT - 08/17/2020 07:14:00 AM T [facility] Patient discharged. Outpatient Attender: BRAYAN SOSA 08/13/2020 12 :00:00 AM EDT Other urethral stricture, male, unspecified [facility] Other urethral stricture, male, unspecif ied site Outpatient Attender: Vinny DrakeA-XXHAURO 08/06/2020 12:00:00 AM EDT - 08/06/2020 10:41:25 AM EDT Other urethral bulbous stricture, [facility] Other urethral bulbous stricture, male Outpatient Attender: Vinny DrakeA-XXHAURO 07/30/2020 12:00:00 AM EDT - 07/30/2020 04:05:04 PM EDT [facility] Outpatient Attender: Vinny Aburto MDAdmitter: Vinny Aburto MD [id number] 07/29/2020 05:40:00 AM EDT - 07/29/2020 02:35:00 PM ED T URETHRAL STRICTURE [facility] URETHRAL STRICTURE Patient discharged. Outpatient Attender: DEFAULT / GENE ALEXANDER / UNKNOWN PROVIDER ALIASES Attender: ERIN JOHNSONReferrer: Vinny Aburto MD [id number] 07/26/2020 12:00:00 AM EDT - 07/27/2020 12:00:00 AM ED T Contact with and (suspected) exposure to other viral communicable diseases [facility] Contact with and (suspected) exposure to other viral communicable diseases Outpatient 07/26/2020 12:00:00 AM EDT [facility] Outpatient Attender: SUHAIL [facility] 07/09/2020 02:38:00 PM EDT [facility] Outpatient Attender: SUHAIL [facility] 07/09/2020 12:59:00 PM EDT [facility] Outpatient Attender: Vinny Aburto MD [id number] 07/05/2020 12:00:00 AM EDT - 07/06/2020 12:00:00 AM EDT Other urethral bulbous stricture, [facility] Other urethral bulbous stricture, male Outpatient Attender: Vinny DrakeA-XXHAURO 06/14/2020 12:00:00 AM EDT - 06/14/2020 12:48:40 PM EDT Other urethral bulbous stricture, [facility] Other urethral bulbous stricture, male [facility]/10[facility]2020 12:00:40 AM EDT [facility]: [facility] 06/09/2020 01:32:01 PM EDT [facility] Outpatient Attender: SU[facility]IL [facility] 06/09/2020 01:31:01 PM EDT [facility] Outpatient Attender: SUHAIL [facility] 06/08/2020 03:09:00 PM EDT [facility] Outpatient Attender: CHUNG [facility] 06/08/2020 01:53:00 PM E DT [facility] Outpatient Attender: CH[facility]G [facility] 06/08/2020 01:52:01 PM E [facility] Unknown [address] [address] 04/23/2020 12:00:00 AM EDT eCW1 ([facility]) Outpatient [address] [facility] [address] 04/22/2020 12:00:00 AM EDT eCW1 ([facility]) Outpatient Attender: YANN NEIL IV ED-HCCEDWPCP 2019 09:07:00 AM EDT - 03/23/2020 09:08:00 AM EDT [facility] Patient discharged. Medications Medication Brand Name Start Date Product Form Dose Route Admi nistrative Instructions Pharmacy Instructions Status Indications Reaction Description Data Source(s) Elderberry 575 MG/5ML Oral Syrup [id number] 08/05/2020 12:00:00 AM EDT 1 mL Oral active Take 1 mL by mouth every morning [facility] celecoxib 100 MG Oral Capsule celecoxib (CELEBREX) cap alfa 100 mg celecoxib (CELEBREX) capsule 100 mg 07/30/2020 12:00:00 AM EDT 100 mg Oral active 100 mg, Oral, Every 12 hours, First dose on Sun at 0000, For 30 days [facility] Medication administered onsite Diazepam 5 MG Oral Tablet diazePAM (VALIUM) tablet 10 mg diazePAM (VALIUM) tablet 10 mg 07/29/2020 10:00:00 PM EDT 10 mg Oral activ e 10 mg, Oral, Nightly, First dose on Sun07/29/20 at 2200, For 3 days [facility] Medication administered onsite Docusate Sodium 100 MG Oral Capsule docusate sodium (C OLACE) capsule 100 mg docusate sodium (COLACE) capsule 100 mg 07/29/2020 09:00:00 PM EDT 100 mg Oral active 100 mg, Oral, 2 Times Daily, First dose on Justine 07/29/20 at 2100, For 30 days [facility] Medication administered onsite Oxybutynin chloride 5 MG Oral Tablet oxybutynin (DITRO ROBERSON) tablet 5 mg oxybutynin (DITROPAN) tablet 5 mg 07/29/2020 05:00:00 PM EDT 5 mg Oral active 5 mg, Oral, Three T imes Daily Standard, First dose on Justine 07/29/20 at 1700, For 30 days [facility] Medication administered onsite Cefazolin 2000 MG Injection ceFAZolin (ANCEF) IVPB 2 g in dextrose (premix) ceFAZolin (ANCEF) IVPB 2 g in dextrose (premix) 07/29/2020 04:00:00 PM EDT 2 g Intravenous active 2 g, Int ravenous, Administer over 30 Minutes, Every 8 hours, First dose on Justine 07/29/20 at 1600, For 3 doses
Per SCIP Protocol
[facility] Medication administered onsite heparin (porcine) 5000 UNIT/ML injection 5,000 Units [id number] 07/29/2020 01:45:00 PM EDT 5000 U Subcutaneous active 5,000 Units, Subcutaneous, Every 8 hours, First dose on Justine 07/29/20 at 1345, For 30 days [facility] Medication administered onsite ondansetron (ZOFRAN) injection 4 mg [id number] 07/29/2020 01:44:1 7 PM EDT 4 mg Intravenous active 4 mg, In travenous, Every 8 hours PRN, Nausea, Vomiting, Starting Justine 07/29/20 at 1344, For 5 days [facility] Medication administered onsite Acetaminophen 325 MG Oral [...] mg from all sources in 24 hours.
[facility] Medication administered onsite maalox/lidocaine/diphenhydrAMINE (RADIAT ION MIXTURE) 1:1:1 oral suspension 10 mL 07/29/2020 01:44:17 PM EDT 10 mL Swish & Spit acti ve 10 mL, Swish & Spit, Every 2 hours PRN, For Mouth Pain, Starting Justine 07/29/20 at 1344, For 30 days [facility] Medication administered onsite Oxycodone Hydrochloride 5 MG [...] only) require Pain Service consultation and approval.
[facility] Medication administered onsite NaCl infusion 0.9 % [id number] 07/29/2020 11:00:00 AM EDT Intravenous active at 100 mL/hr, Intrav enous, Continuous, Starting Justine 07/29/20 at 1100, For 30 days [facility] Medication administered onsite celecoxib 100 MG Oral Capsule celecoxib (CELEBREX) cap alfa 100 mg celecoxib (CELEBREX) capsule 100 mg 07/29/2020 10:00:00 AM EDT 100 mg Oral completed 100 mg, Oral, Once, Justine 07/29/20 at 1000, For 1 dose
As soon as packing removed from mouth
[facility] Medication administered onsite maalox/lidocaine/diphenhydrAMINE (RADIAT ION MIXTURE) 1:1:1 oral suspension 10 mL 07/29/2020 09:58:26 AM EDT 10 mL Swish & Spit acti ve 10 mL, Swish & Spit, Every 2 hours PRN, For Mouth Pain, Starting Justine 07/29/20 at 0958, For 30 days, Recovery
Please give 1st dose in recovery room prior to transfer to the floor
[facility] Medication administered onsite fentaNYL (SUBLIMAZE) (PF) injection 12.5 mcg [id number] 07/29/2020 09:29:10 AM EDT 12.5 ug Intravenous active 12.5 mcg, Intravenous, Every 5 min PRN, Moderate Pain (Pain Scale Score 4-6), Starting Justine 07/29/20 at 0929, For 10 doses, Recovery [facility] Medication administered onsite Acetaminophen 325 MG Oral Tablet acetaminophen (TYLENO L) tablet 650 mg acetaminophen (TYLENOL) tablet 650 mg 07/29/2020 09:29:10 AM EDT 65 0 mg Oral completed 650 mg, Oral, O nce PRN, Mild Pain (Pain Scale Score 1-3), Pain, Starting Justine 07/29/20 at 0929, For 1 dose
Maximum daily dose of acetaminophen is 3,000 mg from all sources in 24 hours.
[facility] Medication administered onsite fentaNYL (SUBLIMAZE) (PF) injection 25 mcg [id number] 07/29/2020 09:28:59 AM EDT 25 ug Intravenous active 25 m cg, Intravenous, Every 5 min PRN, Severe Pain (Pain Scale Score 7-10), Starting Justine 07/29/20 at 0928, For 10 doses, [facility] Medication administered onsite Diazepam 5 MG Oral Tablet diazePAM 5 MG Oral Tablet (V ALIUM) diazePAM 5 MG Oral Tablet (VALIUM) 07/29/2020 12:00:00 AM EDT 5 mg Oral ac tive Take 1 tablet by mouth nightly for 7 days, Max Daily Dose: 5 mg [facility] maalox/lidocaine/diphenhydrAMINE 1:1:1 SWISH & SWAL oral brenda pension 07/29/2020 12:00:00 AM EDT 10 mL Swish & Spit active Swish and spit 10 mLs every 2 (two) hours as needed (For Mouth Pain)Pharmacy compound: Maalox, lidocaine viscous 2 %, Benadryl 12.5 mg/5 mL [facility] Docusate Sodium 100 MG Oral Capsule Docu sate Sodium 100 MG Oral Capsule (Colace) Docusate Sodium 100 MG Oral Capsule (Colace) 07/29/2020 12:00:00 AM EDT 100 mg Oral active Take 1 capsule by mouth Two Times Daily for 10 days [facility] Oxybutynin chloride 5 MG Oral Tablet Oxy butynin Chloride 5 MG Oral Tablet (DITROPAN) Oxybutynin Chloride 5 MG Oral Tablet (DITROPAN) 2019 12:00:00 AM EDT 5 mg Oral active Take 1 t ablet by mouth Three times daily for 7 days [facility] celecoxib 100 MG Oral Capsule Celecoxib 100 MG Oral Ca psule (CELEBREX) Celecoxib 100 MG Oral Capsule (CELEBREX) 07/29/2020 12:00:00 AM EDT 100 mg Or al active Take 1 capsule by mouth Two Time s Daily for 7 days [facility] Sulfamethoxazole 800 MG / Trimethoprim 1 60 MG Oral Tablet Sulfamethoxazole- Trimethoprim 800-160 MG Oral Tablet (Bactrim DS) Sulfamethoxazole-Trimethoprim 800-160 MG Oral Tablet (Bactrim DS) 07/29/2020 12:00:00 AM EDT 1 {tbl } Oral active Take 1 tablet by mouth Two T imes Daily for 7 days [facility] Acetaminophen 325 MG Oral Tablet Acetaminophen 325 MG Oral Tablet (Tylenol) Acetaminophen 325 MG Oral Tablet (Tylenol) 07/29/2020 12:00:00 AM EDT 650 mg Oral active Take 2 tablets by mouth every 6 (six) hours as needed for Pain for up to 10 days [facility] Acetaminophen 325 MG / Hydrocodone Richard trate 5 MG Oral Tablet HYDROcodone- Acetaminophen 5-325 MG Oral Tablet (LORTAB) HYDROcodone-Acetaminophen 5-325 MG Oral Tablet (LORTAB) 06/09/2020 12:00:00 AM EDT active TAKE TWO TABLETS BY MOUTH AT BEDTIME NEEDED MAX DAILY DOSE TWO TABLETS [facility] Sulfamethoxazole 800 MG / Trimethoprim 1 60 MG Oral Tablet [Bactrim] Bactrim DS 800-160 MG Bactrim DS 800-160 MG 04/23/2020 12:00:00 AM EDT 1.0 {table t} active Bactrim DS 800-160 MG eCW1 ( [facility]) Sulfamethoxazole 800 MG / Trimethoprim 1 60 MG Oral Tablet [Bactrim] Bactrim DS 800-160 MG Bactrim DS 800-160 MG 04/23/2020 12:00:00 AM EDT 1.0 {table t} active Bactrim DS 800-160 MG eCW1 ( [facility]) sildenafil 25 MG Oral Tablet [Viagra] Viagra 25 MG Viagra 25 MG 04/22/2020 12:00:00 AM EDT 1.0 {tablet_as_needed} active Viagra 25 MG eCW1 ([facility]) sildenafil 25 MG Oral Tablet [Viagra] Viagra 25 MG Viagra 25 MG 04/22/2020 12:00:00 AM EDT 1.0 {tablet_as_needed} active Viagra 25 MG eCW1 ([facility]) tizanidine 4 MG Oral Tablet tiZANidine HCl 4 MG Oral T ablet (ZANAFLEX) tiZANidine HCl 4 MG Oral Tablet (ZANAFLEX) 02/09/2020 12:00:00 AM EDT active TAKE ONE TABLET BY MOUTH EVERY E IGHT HOURS NEEDED [facility] Vitamin B 12 1 MG/ML Injectable Solution Cyanocobalamin 1000 MCG/ML Injection Solution (VITAMIN B12) Cyanocobalamin 1000 MCG/ML Injection Mili ution (VITAMIN B12) 11/08/2019 12:00:00 AM EST active INJECT ONE MILLILITER EVERY TWO WEEKS [facility] ELDERBERRY PO Oral aborted Take by mouth every morning [facility] Insurance Providers Payer name Policy type / Coverage type Policy ID Covered republican ID Covered republican's relationship to stokes Policy Stokes Plan Information FORMERLY [facility] COMMUNITY PLAN [facility] [id number] SP [id number] [facility] Commercial Insurance Co. 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 Managed Care - [facility] Community Plan P [id number] S [id number] [facility] [address] [id number] S [id number] FORMERLY [facility] COMMUNITY PLAN [facility] [id number] SP [id number] BC/BS Of [place] Medigap Part B Self Lifetime Benefit Solution Commercial Self [facility] Community Plan Health Maintenance Organization (HMO) Self [facility](MCAID) O [id number] S [id number] [facility] COMM PLAN [id number] 18 [id number] FORMERLY [facility] COMMUNITY PLAN [facility] [id number] SP [id number] [facility] MEDICAL CLAIMS -CLINIC [id number] 18 [id number] [facility]/P [id number] Problems, Conditions, and Diagnoses Code Display Name Description Problem Type Effective Dates Data Source(s) 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, acquired, situational, mild Problem 020 12:00:00 AM EDT eCW1 ([facility]) N35.819 Other urethral stricture, male, unspecif ied site Other urethral stricture, male, unspecified site Diagnosis 07/29/2020 09:59:44 AM EDT [facility] 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, male O ther urethral bulbous stricture, male Diagnosis 07/29/2020 09:59:44 AM EDT [facility] Urethral stricture Urethral stricture Diagnosis 0 05:40:00 AM EDT [facility] URETHRAL STRICTURE URETHRAL STRICTURE Diagnosis 0 05:40:00 AM EDT [facility] Z20.828 Contact with and (suspected) exposure to other viral communicable diseases Contact with and (suspected) exposure to other viral communicable diseases Diagnosis 07/26/2020 11:55:58 AM EDT [facility] Surgeries/Procedures Procedure Description Date Indications Data Source(s) COMPLEX UROFLOMETRY COMPLEX UROFLOWMETRY Routine 08/06/2020 1 0:24 AM EDT Other stricture of bulbous urethra in male 08/06/2020 10:24: 14 AM EDT Other stricture of bulbous urethra in [facility] Other stricture of bulbous urethra in tx debora DUKE VIDEO DUKE VIDEO Routine 07/29/2020 7:03 AM EDT 07/29/2020 07:03:53 AM EDT [facility] COMPLEX UROFLOMETRY COMPLEX UROFLOWMETRY Routine 07/05/2020 5:39 PM EDT Other stricture of bulbous urethra in male 07/05/2020 05:39: 21 PM EDT Other stricture of bulbous urethra in [facility] Other stricture of bulbous urethra in tx debora RAJI POST-VOIDING RESIDUAL URINE&/BLDR CAP BLADDER SCAN, POST V OID Routine 07/05/2020 5:39 PM EDT Other stricture of bulbous urethra in male 07/05/2020 05:39: 21 PM EDT Other stricture of bulbous urethra in [facility] Other stricture of bulbous urethra in ma le Results ID Date Data Source [id number] 12/08/2020 12:00:00 AM EST [facility] Name Value Range Interpretation Code Description Data Mary rce(s) Supporting Document(s) SARS coronavirus 2 RNA [Presence] in Res piratory specimen by CONTRERAS with probe detection NEGATIVE [facility] This lab was ordered by Greer Stoner and reported by [facility]. ID Date Data Source [id number] 12/08/2020 12:00:00 AM EST [facility] Name Value Range Interpretation Code Description Data Mary rce(s) Supporting Document(s) [facility] Rapid COVID Antigen Test Negative [facility] This lab was reported by Greer ling. ID Date Data Source [id number] 10/25/2020 01:25:51 PM EST [facility] Name Value Range Interpretation Code Description Data Mary rce(s) Supporting Document(s) Progress Note [facility] WFDKGi6lWcMTPnRh50/JVXbdXICsu9KzUTuvNMn8TBohTIUvG8BrPZP6rG1jHPE5XUyZTlRyUjCtTcFq [facility] TvQtmGNpBiQWCaBqyVIeOkFVzvDpkycSHfZM6IiRO4LAYtA12qHRNyTLSfC6YkSTOzRzV+Bn8WACEbaA RxYK1HCjdK1Pstb3yB4OtW/hlMRhPDOve1y0gbyGLi0COZ3uxtrzoK0j+zFHrsWfSOWw8569uJVrRPcF ICgbkqLTY8MS18qYn0f+wtpYb69jd7xsWS84oka/Ez SgTrjdmf/4NIh1SZDOi+FZMWV9SNxmy0BW1RrA3Mflzn+M1GKVlRSccy8ztXeXqUhSFb2N/evGKd/Thurman [file] KFvj11fZvvGv+Iic74+d3Sg/YbmWzZjF3FDtivt6a3zUJcaqvh+/r02wS7IcNi/BLINDSTITCH HEMMER+pUit6l+PILsRim [file] BzMXHhRNT9FSVcQLubKuE9LovjCpx4HaOdJL0RLy4WJqU0UWA9sUEcEm7ZGFXtEYMCLrYmLY5ZSQp= ID Date Data Source [id number] 08/06/2020 10:56:27 AM EDT [facility] Name Value Range Interpretation Code Description Data Mary rce(s) Supporting Document(s) Progress Note [facility] KHCLQf5sUjBPYiIh53/EGUnpLKOpn6UaDLgdAXb5OByoSRFtX1NnOXZ5eT6zQRG5AMzKWkXyYcKhLWHo lbm [file] ICAgICAgICAgICAgICAgICAgICAgICAgICAgICAgICAgICAgICAgICAgICAgICAgICAgICAgICAgICAg ICAgICAgICAgICAgICAgICAgICAgICAgICAgICAgICAgICAgDQogICAgICAgICAgICAgICAgICAgICAg ICAgICAgICAgICAgICAgICAgICAgICAgICAgICAgIC AgICAgICAgICAgICAgICAgICAgICAgICAgICAgICAgICAgICAgICAgICAgICAgDQogICAgICAgICAgIC AgICAgICAgICAgICAgICAgICAgICAgICAgICAgICAgICAgICAgICAgICAgICAgICAgICAgICAgICAgIC AgICAgICAgICAgICAgICAgICAgICAgICAgICAgDQog ICAgICAgICAgICAgICAgICAgICAgICAgICAgICAgICAgICAgICAgICAgICAgICAgICAgICAgICAgICAg ICAgICAgICAgICAgICAgICAgICAgICAgICAgICAgICAgICAgICAgDQogICAgICAgICAgICAgICAgICAg ICAgICAgICAgICAgICAgICAgICAgICAgICAgICAgIC AgICAgICAgICAgICAgICAgICAgICAgICAgICAgICAgICAgICAgICAgICAgICAgICAgDQogICAgICAgIC AgICAgICAgICAgICAgICAgICAgICAgICAgICAgICAgICAgICAgICAgICAgICAgICAgICAgICAgICAgIC AgICAgICAgICAgICAgICAgICAgICAgICAgICAgICAg DQogICAgICAgICAgICAgICAgICAgICAgICAgICAgICAgICAgICAgICAgICAgICAgICAgICAgICAgICAg ICAgICAgICAgICAgICAgICAgICAgICAgICAgICAgICAgICAgICAgICAgDQogICAgICAgICAgICAgICAg ICAgICAgICAgICAgICAgICAgICAgICAgICAgICAgIC AgICAgICAgICAgICAgICAgICAgICAgICAgICAgICAgICAgICAgICAgICAgICAgICAgICAgDQogICAgIC AgICAgICAgICAgICAgICAgICAgICAgICAgICAgICAgICAgICAgICAgICAgICAgICAgICAgICAgICAgIC AgICAgICAgICAgICAgICAgICAgICAgICAgICAgICAg ICAgDQogICAgICAgICAgICAgICAgICAgICAgICAgICAgICAgICAgICAgICAgICAgICAgICAgICAgICAg PPGzPSHdQCEmPXYtXSMvLTHyAVRxKSZoABUwQXArNRGqTEOkSUEdRMZgJFCuRCr7C1tcMGOzZRRiKF4y JHp9Lj4+SKeTSrPbFSM5enRebW9GRC6ki3OrSDqkLS Yxc9JqRDm9DG6GSCLpJRszZZ3ZBIoajk3ZRWCeJNLkqSASe1qvSkWaGKL8WKFhGxmxEI3ICVCaF8xspf BiGYLzAKWEDCmpVJWSPAeeQZFUNKFzVJUjMzMnKDkfTC3Bu6RspYL0PZq+Vo2HVC5vu7GyFDcaMWTuBJ 2qqe2BBWfUGtAmZ9HzrfY7UQL4RLNpRh9IKTDkBHKi xIZyVISsECNQNpIxO6VilZ41WMXRPr3+WSekiuDeEmsFFxF4BCLao8AuLHj7KQ9XVESgTPi7rPTbZHDr S9Jks7NmRr68FEMcIorsKW5rhGRbjZZVjBjlgSG3u5n3PZFCQVTujKGjTP9gAfGkQqTaNGC3VZApPN9i ZDqwXY0CJHP6EQorQEWtYKWsZ9hRQsIqIZStHDZfnS ekZO6MXoTvG4GjwaYphBXeUXXjSDDWRj5+HTzjnkBlWzuVSpWpOHHir8StDFs6PC5OPJSmKIxzVS6HTY VsyH6iDMhuLE1NMbWyCdQnWRSWArXeZ38ptPGrLCu7V4YdVxArKBWgFniyKWHeOHuqNcUoVNCcVdHtFB ogID4+ID4+OAtoHB7JGQqkpvNjUHCvHy0AFUWoGHKr ZO5kJFUsEEMoU9R0oJejIADJNqPsQ3vzmhhpRO7jRSLeL452xOmmboBlQGD3PHCyGu0XBPIkWRD1KSJt sCHrUiabSMQEIOlxER5YvCIkKXM7rR4aXDwlWOMpRZClJ9uKLiSxeDpvGR25oJngpfVuvHFwGVd+Pg0K JX3qm8XiGOm1fjSdDAmiACJvZYioAGChNAOqUALiRV V2VJG0DBPGEsGmTVXjGXFhQKldWZQnZDJvnn7WVOMfDKTtAAUnUCHvUEXnZZDmRXjzSDGrLARbZDE8QD BoEVUtVQ7TAnIkEVTkWUTdLThjWGCjMEQbvi7EKVXuBYOdXTSyNWYnBETwNJKnDWucDXXrJKP5WFDzJK SyAFWuQA5VRpGmPOCgEWp6ZVPuBHSfKFPlby2MOKYl DICzCbs7TLOuAMXwCNPsVOonMDDuPLIjAeEgWQSwSGEtEB6FOkPcMJDtIWV1DKOmRDOzSCQkrv9LOGQv UXYrREyyMiGsHLBfAHEhJMsjVHZnKQJyNIZ4LFSlKZWiZD9UTxJcBWWdBXJ1GPszEMRdNVCjwf0WTJXf KVOtEiP9SWQrUCAdSKIkEMaeLOTzNRElEnQ3TFZaHX TqLL2PBhNvBIZgSKByQjkqLHNfPBFibw3VKXMyGWIwMSGmWHDmRREkFWNqTBstVSAuFOR5EbG6PNLdKE RgZZ4FFeYnXGAbZnAlDSdgTOWkZSGztt7GRIVrCFShNpS7HkXtGOAnACEbVYgfWOPkFWU4DulsBSWjBA VwSF4OSaOlBMDlBqM1XwIzBSWrQMAsxv3CZNNsZLQc CyP8ErBwAZKlXBHiQEyqPFQuLQL5DTMnMDFkERJpKK9JZlWoXJCxNokmPYAuWAJcPAXxds7GMRJwLBIz GNV4CUJgCSZsRTAiKCmmUQSpFPF0RGE9PAJsCNSeEX3CHkFcJYLjGtLxLeSaXWFqGPBjmc8OATMaFNBg IBMuXFHpMMPyOFQpRRswCTCgDRLeJHc7DFYbDNOaCF 2BIxAsXYyhJIADJdc6LIjrG7h8TGGwYX6FQ6Phz6JrAvEmGCEZTSdcNK1fcpSkXDTaLa0VO3iZKun3AU GnZVpeZiy5RgFyAcP9FaffFUHvN1M9C7PwSRN1CQ9gHNP3XlRnEuSeDDsnJPZcZmjeLMSjBYXzQgXaBw BgVOY1ZnTxMG0PXk6BSpF0GVW9lWItLr6WUiO7TjTJUuVuAF7WRMl= ID Date Data Source [id number] 08/03/2020 11:14:24 AM EDT [facility] Name Value Range Interpretation Code Description Data Mary rce(s) Supporting Document(s) Operative Note [facility] BJRTIo0yMwIYDhYl94/LBPouNCPit7PbOLdlZCm3CUoxJGThG5NrMON3lQ9tBEP9BEzJJeKaQqNcEKQ9 lbm [file] EjHjVH5ZXc2PEzP0DKX2cNXdCf3BGLY6FobRQqRaMT2OIHm= ID Date Data Source [id number] 07/30/2020 04:58:45 PM EDT [facility] Name Value Range Interpretation Code Description Data Mary rce(s) Supporting Document(s) Progress Note [facility] NGLZQz8vApILYhRk71/IMGipMIJmm1HcBBedBGv1CPmyDDPaQ5UtEBQ4pD1hZES4QPeJWcMxKgGsWRT9 lbm [file] pXEYJTrYFvnfd5Jp5ts7sdgNGSZ2MsU4e0zP3sR4KngaHfohpXAXQqz/Gxec7X7g6gkHmhJt+OeCx/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 [file] HtFPGjYuRpWcD9GLt1TZUyTdLnDB4FNx0TMrN7FLR1tKFbIc6JHyLoTYCCByRsHO5EEVq= ID Date Data Source [id number] 07/30/2020 08:44:25 AM EDT [facility] Name Value Range Interpretation Code Description Data Mary rce(s) Supporting Document(s) Discharge Summary [facility] EIGWHy7rLyAWJjEx00/WNOvdDUDaa5EeIOemIMc4VRrdIJZbE9EwBJJ0iN1jGFR7SRoJTmJrWoApXAE5 lbm [file] ICAgICAgICAgICAgICAgICAgICAgICAgICAgICAgICAgICAgICAgICAgICAgICAgICAgICAgICAgICAg ICAgDQogICAgICAgICAgICAgICAgICAgICAgICAgIC AgICAgICAgICAgICAgICAgICAgICAgICAgICAgICAgICAgICAgICAgICAgICAgICAgICAgICAgICAgIC AgICAgICAgICAgICAgDQogICAgICAgICAgICAgICAgICAgICAgICAgICAgICAgICAgICAgICAgICAgIC AgICAgICAgICAgICAgICAgICAgICAgICAgICAgICAg ICAgICAgICAgICAgICAgICAgICAgICAgDQogICAgICAgICAgICAgICAgICAgICAgICAgICAgICAgICAg ICAgICAgICAgICAgICAgICAgICAgICAgICAgICAgICAgICAgICAgICAgICAgICAgICAgICAgICAgICAg ICAgICAgDQogICAgICAgICAgICAgICAgICAgICAgIC AgICAgICAgICAgICAgICAgICAgICAgICAgICAgICAgICAgICAgICAgICAgICAgICAgICAgICAgICAgIC AgICAgICAgICAgICAgICAgDQogICAgICAgICAgICAgICAgICAgICAgICAgICAgICAgICAgICAgICAgIC AgICAgICAgICAgICAgICAgICAgICAgICAgICAgICAg ICAgICAgICAgICAgICAgICAgICAgICAgICAgDQogICAgICAgICAgICAgICAgICAgICAgICAgICAgICAg ICAgICAgICAgICAgICAgICAgICAgICAgICAgICAgICAgICAgICAgICAgICAgICAgICAgICAgICAgICAg ICAgICAgICAgDQogICAgICAgICAgICAgICAgICAgIC AgICAgICAgICAgICAgICAgICAgICAgICAgICAgICAgICAgICAgICAgICAgICAgICAgICAgICAgICAgIC AgICAgICAgICAgICAgICAgICAgDQogICAgICAgICAgICAgICAgICAgICAgICAgICAgICAgICAgICAgIC AgICAgICAgICAgICAgICAgICAgICAgICAgICAgICAg ICAgICAgICAgICAgICAgICAgICAgICAgICAgICAgDQogICAgICAgICAgICAgICAgICAgICAgICAgICAg ICAgICAgICAgICAgICAgICAgICAgICAgICAgICAgICAgICAgICAgICAgICAgICAgICAgICAgICAgICAg KLHpECZtLPBmXZDlWOg4H7sdYDZoFMPhYU2oSNq9Mf 8+DVgPRuXkOKE0jzYpgG0XOF8dj5JwNEmkUFCtw7AeQGl4EN4CICQkAZgpZN7BSLxels3BQVNdSFWcxT TXq8fmRxJbDTC4NBQjJuqkTK6WWQKuZ2acmyQmFWQfITWEYOesLQTJSYjbUFBOZCIpNFUoTtVlIlHsIZ MuTG6BMPSrB072jaYmWZ7FGm0SFhQbNG8gbo6HAiNh ZQBcYatVVyi8EJmzEO2EpDLliHMwFgDwEMURYmDyT4gfx7IzEsXqSQKMHAbtNY9Sj7YgeYGoTEy+Pg0K SH8rm4FpOYqfZiMbKC6wmm3ITJnPEiWuO1RwqTziGYHvp2NmZTEdCMVSwG9nETR9MPD8EPEsjPXleZwr Qdkuy7qgmbIlfNanHGCaUKHhQB2tJM0iGSOsXXXuCs K2SLFWQS4USNBvEBTqdPJmZNTcMTHHIG5GVDxxWXM2QEZvfsEsiXCzFMvaGZ0HXTSpftIuSnRqPZCZVT o+Kv2NPN7dw0SlPMdkPCXnGK9nkn7COXsGMeQiX7N7wPVbO2Z8FGtySx5FBYCpWZPaCnWiYTWEEHfpKM 6LBO3nboT3KU7LhMQjZVYfLCQncGKuYWz1Y06kqCUb DJigLO8LAWG+Omar+Bl9CPNTmMDHzBMQzNkLtUWCQSgViK2LjB4UKg8SkF9VkDG96gWizurRbYIgrJU9G AO2cVUCqQEUQAG4XrZObnR7tpjEgNgWwRZEWFvRiP89cmQFcFTMrITEuHKPhFk7CKLSvD0EccxVfxAft skPdTZYkSKIUBQ6RNTtizzZwqUPfwRxpOL30rCmcVG 3APc1KFkUoNX7oav5FxKMxQm5GMJVxAU3SJUKyVJAvUTZiJBM3ODUkSzYmEFdhKJKvLINiNFH7PXEtQD JgMQ9MCcVsXALmYSM5XOsbAMJbVLVudj6VKSUtVTG0MeE7ZjXdBZVtCDUgJJroJIRtTNIoFZO9BVHzIU IiHE6PJaCjQMNmEET2PiUoPVObPJSkyz9KQXPoCLQd SdA6FLWcHMBuFRPdBUpjNQKlYUU4Mff7FXMxXUQrTR1MUcSmISSwEGE4IbdoVTClGJIprd7RWMXlTDYw NYW4GLUeYSTfUQLuQVuxVYYpUFZoAltoIPQfQQInGL3WXwKxZECcDISmRRYqJNNfCIPyvk4XZACxEWVq DEAxUFCoQRSfKTLjIUapSCPeJOM3OZJlSKLwREFcRK 0XUsKuEHEvUID2VHniDIHcNWXeqj8RNSMqHTAaNveoGFXdJYEmXUQhZObhXAAoMPJ6CMV9BAHwAQJiKQ 0VIrXrUPTlKIjgYBpsXXZvTVZylr0EIINkUSQpKCG2AfZjGQOtPEMuVCpuSBJlGSU9EmB5EWKhXZCwUW 4YAbHsULVwOSl8LefqHKSqDQFwdp9VYEQxTRB8MMIo RcPyOVHvGUPjKCegBWAkYIT4LBPrNTDsQMJrMB5VVnLwGLCeHJxiOTMxALFkPIWcqz8QRKGrFLQ4KMy2 QARgYOGaKLLqIZrgWKHpEGFhUTZnBBRwKTUeLW7RCeQvKOAyHSI4RiScCXGnPJJeuw1DCRFgBHW6OFV9 WMEfSZUtYWVrUYvtNHJnRKS9XtpbQAQxZNNqIT3ALv ChFQEcIIM9YoLyROXkSTNmeq6TQWBtEYQ8PXQ8ByYsZMGdWUXkSRdiDZQsSVJ0KJOuCWDqJTFnYK5HZa AdBLKxIAt9BshzCBKsPZIwku4FYDOqRCZ2QjOfNUTiKEObZDZyGCpjMIGqGXQ0Pcn1LDZoFQThYC5RWp DjNDodJUAPFqh3ZBwhD8m4GPAyML3PB3Biu1EsLfUg YTRJOWqnZU2ajaToGVPvVv9YY0qODuwoCJZoOgBcHEC8Z0OqHTOdFmZ2QVQcNeblDlSfXGVsCv9xKOIw M7ObHKH7UTY2NwI2ElQ1NuxhWHTyW3HoY1QsJoD3ZpWtPB6TTo4IOwZ1GDF6wZWpPr1VYDcqPfqRXjXs RV1GWGn= ID Date Data Source [id number] 07/29/2020 07:28:50 AM EDT [facility] Name Value Range Interpretation Code Description Data Mary rce(s) Supporting Document(s) History and Physical [facility] WNPGQh3ePzNFItEw85/QZTpvOICso9NmMIoaTYz1ALtpYJXjP2PgPIK0bO1hUDE7HAkCYhYhIoGcRXJ6 lbm [file] U+GZ9jVKf+Uj5Qt6XlvyO1qnRaEQp5BNorKu8HBNABA5UWNp== ID Date Data Source [id number] 07/26/2020 12:10:37 PM EDT [facility] Name Value Range Interpretation Code Description Data Mary rce(s) Supporting Document(s) Progress Note [facility] CFOMHz8dKqQKTqUp90/HFLifFNFie8GcQSpiPYb1WFbdUMVgS3AlNVC3cS4aTJW0OJtNDvCuPeEpWHNl lbm [file] uiRrYPquDDY9LE9LNXZQK4EBOu== ID Date Data Source [id number] 07/27/2020 03:13:19 PM EDT [facility] Name Value Range Interpretation Code Description Data Mary rce(s) Supporting Document(s) Specimen source [Identifier] of Unspecified specimen [facility] SARS-CoV-2 RNA 2018 nCoV Real-Time RT-PCR: NOT DETECTED [facility] Assay Performed [facility] Initial validation was performed by the Centers for Disease Control and Prevention (CDC) and additionally validated by the Dept. of Pathology [facility]. Negative results do not preclude SARS-CoV-2 infection and should not be used as the sole basis for patient management decisions.Additional information is available on the following FDA websites for health care providers and patients. https://www.fda.gov/media/621637/download, https://www.fda.gov/media/657220/download. 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 [facility] Patient has symptoms related to [facility] When did you start to experience these symptoms [Date and time] [Phen X] [facility] Patient was hospitalized because of this condition [facility] patient was admitted to ICU for [facility] Reside in Group Setting [facility] status [facility] ID Date Data Source [id number] 07/26/2020 12:10:00 PM EDT [facility] Value Range Interpretation Code Description Data Mary rce(s) Supporting Document(s) SARS-CoV-2 RNA [facility] This lab was ordered by [facility] and reported by [facility]. ID Date Data Source [id number] 07/09/2020 12:30:28 PM EDT [facility] Current Medications: * VIT D * VIT [...] and Watches: Assessment & Plan Medications:VIT DVIT URVELBKPNRTP54TLAYUELSDEEUUZVCNHQVVPimtgrhfs:* LATEX (Critical)* RED 40 DYE (Critical)* CORN SYRUP (Critical) Name Value Range Interpretation Code Description Data Mary rce(s) Supporting Document(s) ID Date Data Source [id number] 07/07/2020 08:41:23 AM [facility] Service Cmnt XXX-Imp : NoneMicroorganism XXX Cult : 50,000 col/mlIndigenous microorganisms. Name Value Range Interpretation Code Description Data Mary rce(s) Supporting Document(s) ID Date Data Source [id number] 07/05/2020 06:04:31 PM EDT [facility] Name Value Range Interpretation Code Description Data Mary rce(s) Supporting Document(s) Progress Note [facility] VAQYEm1iXgCBVrVx66/UINljPEHrp6PxAFpcODz5RFsdAQZsK5QbYKG5wR2oTNL9QOvIZrQaYbToRSKy lbm [file] ICAgICAgICAgICAgICAgICAgICAgICAgICAgICAgICAgICAgICAgICAgICAgICAgICAgICAgICAgICAg ICAgICAgICAgICAgICAgICAgICAgICAgICAgICAgICAgICANCiAgICAgICAgICAgICAgICAgICAgICAg ICAgICAgICAgICAgICAgICAgICAgICAgICAgICAgIC AgICAgICAgICAgICAgICAgICAgICAgICAgICAgICAgICAgICAgICAgICAgICANCiAgICAgICAgICAgIC AgICAgICAgICAgICAgICAgICAgICAgICAgICAgICAgICAgICAgICAgICAgICAgICAgICAgICAgICAgIC AgICAgICAgICAgICAgICAgICAgICAgICAgICANCiAg ICAgICAgICAgICAgICAgICAgICAgICAgICAgICAgICAgICAgICAgICAgICAgICAgICAgICAgICAgICAg ICAgICAgICAgICAgICAgICAgICAgICAgICAgICAgICAgICAgICANCiAgICAgICAgICAgICAgICAgICAg ICAgICAgICAgICAgICAgICAgICAgICAgICAgICAgIC AgICAgICAgICAgICAgICAgICAgICAgICAgICAgICAgICAgICAgICAgICAgICAgICANCiAgICAgICAgIC AgICAgICAgICAgICAgICAgICAgICAgICAgICAgICAgICAgICAgICAgICAgICAgICAgICAgICAgICAgIC AgICAgICAgICAgICAgICAgICAgICAgICAgICAgICAN CiAgICAgICAgICAgICAgICAgICAgICAgICAgICAgICAgICAgICAgICAgICAgICAgICAgICAgICAgICAg ICAgICAgICAgICAgICAgICAgICAgICAgICAgICAgICAgICAgICAgICANCiAgICAgICAgICAgICAgICAg ICAgICAgICAgICAgICAgICAgICAgICAgICAgICAgIC AgICAgICAgICAgICAgICAgICAgICAgICAgICAgICAgICAgICAgICAgICAgICAgICAgICANCiAgICAgIC AgICAgICAgICAgICAgICAgICAgICAgICAgICAgICAgICAgICAgICAgICAgICAgICAgICAgICAgICAgIC AgICAgICAgICAgICAgICAgICAgICAgICAgICAgICAg ICANCiAgICAgICAgICAgICAgICAgICAgICAgICAgICAgICAgICAgICAgICAgICAgICAgICAgICAgICAg ICAgICAgICAgICAgICAgICAgICAgICAgICAgICAgICAgICAgICAgICAgICANCjw/pBOqV4urvNCziaG8 I9dcPt9EHn2ZVL3cl8TeZVDjPQunzrBaMxgZOlNgXY SbBosAUow1EOeaPL7DdZLfB3UcE4PoGSwzPH8ROYNgKVCqlQKfLEAyWGTmQbD8NBHwAXlgXX0WlZYvDC uzGATmVFKzBlUaXYSsQVZsSOFoUV7WQATnR631rjNjOp8QGe7VSpGmDK0ksp5LSpCzTBDcNkhBAgr4NZ mwRX3LeNSxkHDqTgHiFBMYZxQiT1jbl7QqMdjiNUJA UDpbLE3Ud9XhiPPaTLw+Wk3UNO1ti5IyJIrtEtHpOV4kdz2QKPnAHnCrX8CvlPfwOWNel7ylTGCmZP6x rLPcDHF3VBRumGGaxCxuSvmin7tsntMbyUeyZCAyUZDxXX8bAV6vXVNfONQ7YdBeJQSIKK0FYQRhVRKf kFOhOBUuWQMCNQ6EPYjvRZR0HQKxhmPooAGeYWwlYQ 9QYXJlbnQgMjYgMCBSDQo+Oo9IOZ9xm6XfXBaqGAHzPK7vft4FXExQHoAbJ7Y7rZWiD3D3VLjbIz5OYL UxYNMtAmXbCMYIPMjcGP2VRG8omvD0UY2ZxPMyGGTeAHQhhBXcCMo9Q05bsZXeSUhkZC3JIFQ+Omar+Pg 0PFIWdMXWdJNOcWoWhADWHHkGdA7YoW1VGw4JbZ6Za AQ84dFyqrpDvIFuwKE1UQB2fBJKfOGKLFF0VfDCmuF6gobUlMwHwXUYQVwNmU29cfWYvMREfAGZ8RXDb Fa0OYQTtR9CezhYbjBqjajUiWXYhKUZTMU3FOObyilCsxNCayLxkMP32kBhjLJ7GKa0UBdMpEC7teo3I mSMjQi8FPWOgNL9VYBWuXTVdCUBcAAJ6ZINyXtAbUV wuFLBmNMDeFWU8QEIkGEWzCO4NUiEjMXCbGxZ5ZCYfVJUsFYJzxl7YQEMbSPRhRjOiNSVtLFKyCQJaVU uoPWKlGHGoYTE3ZIGtNJMkWB2VFsIyNCRtYCUnTJQqPSVdAONnzo5SEECtITHgONY1KgCtFIIaVUWcAR bvZIKyCTY6RAr7COQsATUoFX8RUoGoCKMxYGodOmhq YWWuXVUajz7FCZYqVFEeRCI8EwFbJYYjBUFvNUwcMHOkFZG3WsYxOKQrHIOoWU0EHaCsBHQmYDZcKnDb VIIpUFHbcr4KZKYmKKJaEAA9EtTwXQIaROAfYAtsPDGrVEVbNqUpGWJdEHBsHT8YDaAuUVYfPAH2ZAci AXPyNMJbol1HQIUcRVXbAPhvWUHzDKWsYOYpPJrhRN YoOGIhFOk1DQFbQCJhFQ7AXjCkIPMxJuP6IQdeAWCaPSGldv9KCOZlXNFzQoo8RWNlCMHvLYFaXLxaSL NeFOGhQPYaTCUgTNXrEB8DWtNmQRFpCcLmYRVcZGTmEYRiuh0LLCVqQHEsMUT5LAWxFEPeOCWcFUzqRH DbPJM7GhvrGCHeUZIyMH1YHzPdXLOhNeC8HYWwTAWo HUNjvw6JHZShZBYnPGT3NTMbMLOoHEBcKVmzHMUxZZK7JNs5FMVqDXEkUB3JEsWqJMKhMnu5ZunlRISo UFIgck6FZGUiNFGjBpB1KUUcWDOlYURlUHcnWSQwYXO1NtMpZQLyXGViMW1LLpOzLVmbVHDYKmj8VAdz W0d0INPgYG6KU7Bbo7ObPvfdSSYHCQocFB2qotKtBC RtAk3NA0fZMfe2AYc7PbO8ErdwEMI6WIZjWdTeDXNsN4SrIIA9CXK0GK4zYZWhIEFgWOtrE7A4TAGfNi LeMhZ7KTWhDEZnEzDwBxgwYdVkZB6FEx4PStJ8EYS0iLQrLm1DZmc9SLROFlJqPD8YSFs= ID Date Data Source [id number] 07/05/2020 09:02:33 PM EDT [facility] Name Value Range Interpretation Code Description Data Mary rce(s) Supporting Document(s) Color of Urine [facility] Clarity of Urine [facility] Specific gravity of Urine by Refractometry automated 1.012 1.003 -1.030 [facility] pH of Urine by Automated test strip 6.0 5.0-8.0 [facility] Protein [Mass/volume] in Urine by Automated test strip Neg [facility] Glucose [Mass/volume] in Urine by Automated test strip Neg [facility] Ketones [Mass/volume] in Urine by Automated test strip Neg [facility] Bilirubin.total [Presence] in Urine by Automated test strip Negative [facility] Hemoglobin [Presence] in Urine by Automated test strip Neg [facility] Leukocyte esterase [Presence] in Urine by Automated test strip Negative [facility] Nitrite [Presence] in Urine by Automated test strip [facility] Leukocytes [#/area] in Urine sediment by Automated count 0 /HPF 0 -5 [facility] Erythrocytes [#/area] in Urine sediment by Automated count 0 /HPF 0-3 [facility] ID Date Data Source [id number] 06/14/2020 02:40:57 PM EDT [facility] Name Value Range Interpretation Code Description Data Mary rce(s) Supporting Document(s) Progress Note [facility] BYBLAz1eEwLOWkFf47/MWChyNVYvm4FuKQhlGAj5AMznSEDnZ3VqKCD3nO1yKTJ0DIaMEdOuRiVbBXUc lbm [file] taVY0f3klb8Wu/[place]/O297xYsQ7irAaqhjMxjlOsUCOjwUzo93g6aBv1YMzwXBHi+FHqRIUQc2TZH9a [file] ICAgICAgICAgICAgICAgICAgICAgICAgICAgICAgICAgICAgICAgICAgICAgICAgICAgICAgICAgICAg ICAgICAgICAgICAgICAgICAgICAgICAgICAgICAgICAgICANCiAgICAgICAgICAgICAgICAgICAgICAg ICAgICAgICAgICAgICAgICAgICAgICAgICAgICAgIC AgICAgICAgICAgICAgICAgICAgICAgICAgICAgICAgICAgICAgICAgICAgICANCiAgICAgICAgICAgIC AgICAgICAgICAgICAgICAgICAgICAgICAgICAgICAgICAgICAgICAgICAgICAgICAgICAgICAgICAgIC AgICAgICAgICAgICAgICAgICAgICAgICAgICANCiAg ICAgICAgICAgICAgICAgICAgICAgICAgICAgICAgICAgICAgICAgICAgICAgICAgICAgICAgICAgICAg ICAgICAgICAgICAgICAgICAgICAgICAgICAgICAgICAgICAgICANCiAgICAgICAgICAgICAgICAgICAg ICAgICAgICAgICAgICAgICAgICAgICAgICAgICAgIC AgICAgICAgICAgICAgICAgICAgICAgICAgICAgICAgICAgICAgICAgICAgICAgICANCiAgICAgICAgIC AgICAgICAgICAgICAgICAgICAgICAgICAgICAgICAgICAgICAgICAgICAgICAgICAgICAgICAgICAgIC AgICAgICAgICAgICAgICAgICAgICAgICAgICAgICAN CiAgICAgICAgICAgICAgICAgICAgICAgICAgICAgICAgICAgICAgICAgICAgICAgICAgICAgICAgICAg ICAgICAgICAgICAgICAgICAgICAgICAgICAgICAgICAgICAgICAgICANCiAgICAgICAgICAgICAgICAg ICAgICAgICAgICAgICAgICAgICAgICAgICAgICAgIC AgICAgICAgICAgICAgICAgICAgICAgICAgICAgICAgICAgICAgICAgICAgICAgICAgICANCiAgICAgIC AgICAgICAgICAgICAgICAgICAgICAgICAgICAgICAgICAgICAgICAgICAgICAgICAgICAgICAgICAgIC AgICAgICAgICAgICAgICAgICAgICAgICAgICAgICAg ICANCiAgICAgICAgICAgICAgICAgICAgICAgICAgICAgICAgICAgICAgICAgICAgICAgICAgICAgICAg ICAgICAgICAgICAgICAgICAgICAgICAgICAgICAgICAgICAgICAgICAgICANCjw/gFFhW0aouBSmvuR7 F6azMn6DOw7HPJ6dt9PpIUWjGBtoihCqYoyPMsEtVI ZjCveGYfe9TXtuLL5RqUWpJ8AsL0BzMOxnWP4MFAJlKPAwhNWdFSWeNPFmNuC4VKHuMUutSL3QrEPkAB rnUQUkZJRbOoLwGKXbLWWdIRReQIVjMWSYQH9KPoCpJ5TccT99ZFKZTt3+UJivgfHlJswAXaH3JJOhk2 FxEPj5XI6ZHCDsPqsne1IuKsmdNJZSGFweWS2QDYV6 TQP4CLRaSw2RNIWdG019oiImAG0YDp6QGgXgGE3xrz5YCkoxVZFcNgtEFsu6QXruHK6LgQNpVJeYhg4r orMqbeCXn7NaoqWqoVIPmSi4cwb7YA7vj69yHVCda0fiBW3AAMG5HRbxCKZoZxEiNUHdQXpmFTLARPsL RvPyP7Lwl4WzJeE0DHXhJcDhUBugOLQeLxZ0ZX57jX jpUK9SCCSfKTUcGS62SBF1MBVeCy4XKo1OMiGtQQ4dvu1QEvVyVLJhRouTOmo5CWolZR1RwONdI8JnrC Wmv1fWFvIkI9CAIXQ1TNZdNy3HFAZbPrGuNTArTUzuHC8cGFOcDXWYjCidauU8BE7ALV6ulxFzVF1KBd KsUe1vNy0ZWkTdS3YpR3VlAFLiWYURHUkkRS4JNTtj ZK6mEP5Le4NVfGGcnH7wsm3MCDJuCQKlHzlvsa1MQosmI3Z5yLnkBJTtXlyyTYQEVYhfDZ0XWMKhJNK2 DDPjBeVmDGDEMxAkO27nVI1CX6Rrr41aMhP7FINuWbYpGEmlXC30zYamfjCetSYovJmcPE8OFl4+DQpl bmRvYmoNCnhyZWYNCjAgMzENCjAwMDAwMDAwMDAgNj Z6QhFuUq8QTIFeMBBeZJTvOaCuGTBcBJBuMNmcNHDdPOV3BoQ2NFEpLFPuPP4UIdXyQWVxWpFuNTGxZZ ZwXCBivm4OYITvTUYtGYK1VyZcPFStBLBnOKygDGWpUDEiRvS2ESVsWBWjHC6BGpVqGVOmGXC5FfXhQQ BhHMCjig8IPHDpKANySmU7TUDjEKPxWIXrSQlhGPFy OBY9KHj8KYGzKWLvYE1GQqSvBKRqOTh2KyqyLKDiYIEuob6TNCRdIZZfYKT1MdFmCGQxVGKmVKsgCQKb KVXpIzEtCKQxRFGlZL5XRtDiUQEfLZJ3ZfEsVUUsOMYewj2SUMFdQMZoMob3TvDbNSZvVFJlZBpuNNMo AWH7YFfhCWDbJZAyDB5HZlVfVVUpQULsNxQyPVLrQZ Obze6DVCRlICRuBPZiIDTbVZGcYBUgDRlgKPCtDSI2SAQ5KDObPEUjCJ5ANzCpTDObFET9DjZfBLKnEB Phnv7INWCtBVLpQdF6YGSmCRFtIALnEEglJHVqWAW8VyazFNYtMJTvDR6WWnSnOKEcSgz5OMwiXKCqDW Ylve0MZMDvXNSjYstfRKHcSZMwJBLeRYubEZWjUTF0 FPd1QWTvBODdQH5IXhEnKNDuDjc3EzgoUVKkTZJomb4BZSVzOBRcDUSwJTOjLYVaDMLeXQngHLMsPWN1 Wqg3UHWeNWFdOH2VTmYaCMZkVrz7TTRwLHKqZYKdpo0HLTSjMJOpSTH0XBTiBKBtNJYkUOdiNRFhKPKw UmPiQZWbKQWmTM6GRqWcIWYvKdWeMJMhCQAkCTBqcv 6NcFQioKgbpr7KBSbGGb8IuLbbVPSmQTnnEm3txOTdMOAvGVEVMp7MapHcNODiLWZFHEudADLwVGzrOf NlWCGhFePxPXNgGzBcOXP6LBMjXdEjEdE0HEMdCeM3NKB9UgKeEFE9VpKtUEO3TOEkDpy6COQlNqR4IF Q0ZGI+GU5sCTp+Do2Gg5YwkeB6edIuLGvwJFCiUQ5OLWXNY9ZZEv== ID Date Data Source [id number] 06/08/2020 01:47:31 PM EDT [facility] Vital SignsBlood Pressure: 150/94 Patient History Medical [...] Existing:Type - CDT Code - Description[E] [employer] #15 Surface OL, #19 Surface DO, #29 Surface OD, #3 Surface MO, #30 Surface MO, #4 Surface OD[E] Resin-Based Composite - Direct On #12 Surface B, #13 Surface B, #25 Surface IMLF, #8 Surface ML[E] Missing - [place] and [place] #1 Surface O Region XR, #16 Surface O Region XR, #17 Surface O Region XR, #2 Surface O Region XR, #31 Surface O Region XR, #32 Surface O Region XR Chart Notes:mjain (Jun 09 2020 1:30PM): [facility]: New pt; Chronic leg painAllergies: [place] syrup, latex, red 40 dye CC: none. [...] 2 yearsRMH: New pt; Chronic leg painAllergies: [place]cher syrup, latex, red 40 dyeSmoking Status: NeverBP: [...] and Watches: Assessment & Plan Medications:VIT DVIT JZMKSOQOBKRU14IKDMZPQIIDKHQWCNJPGCOIdjqufnrqh Changes:Added: * HYDROCODONE* TIZANADINE* B12* ELDERBERRY* VIT C* VIT DAllergies:* LATEX (Critical)* RED 40 DYE (Critical)* CORN SYRUP (Critical) _ Name Value Range Interpretation Code Description Data Mary rce(s) Supporting Document(s) ID Date Data Source [id number] 05/16/2020 10:20:00 AM EDT [facility] Name Value Range Interpretation Code Description Data Mary rce(s) Supporting Document(s) SARS coronavirus 2 RNA [facility] This lab was ordered by [facility] and reported by [facility]. Procedure Social History Code Duration Value Status Description Data Source(s ) Alcohol intake 10/25/2020 12:00:00 AM EST Current drinker of al cohol (finding) completed Current drinker of alcohol (finding) [facility] Tobacco use and exposure 10/25/2020 12:00:00 AM EST Never used co mpleted Never used [facility] Smoking 10/25/2020 12:00:00 AM EST Never smoker completed Never s sdker [facility] Alcohol intake 08/06/2020 12:00:00 AM EDT Current drinker of al cohol (finding) completed Current drinker of alcohol (finding) [facility] Alcohol intake 07/30/2020 12:00:00 AM EDT Current drinker of al cohol (finding) completed Current drinker of alcohol (finding) [facility] Alcohol intake 07/29/2020 12:00:00 AM EDT Current drinker of al cohol (finding) completed Current drinker of alcohol (finding) [facility] Alcohol intake 07/05/2020 12:00:00 AM EDT Current drinker of al cohol (finding) completed Current drinker of alcohol (finding) [facility] Vital Signs ID Date Data Source UNK Name Value Range Interpretation Code Description Data Source(s) Diastolic blood pressure 80 mm[Hg] 80 mm[Hg] eCW1 ([facility]) Systolic blood pressure 124 mm[Hg] 124 mm[Hg] e CW1 ([facility]) Body temperature 96.0 [degF] 96.0 [degF] eCW1 ( [facility]) Respiratory rate 20 /min 20 /min eCW1 ([facility]) Heart rate 70 /min 70 /min eCW1 ([facility]) Body mass index (BMI) [Ratio] 36.27 kg/m2 36.27 kg/m2 eCW1 ([facility]) Body height 76 [in_i] 76 [in_i] eCW1 ([facility]) Body weight 298 [lb_av] 298 [lb_av] eCW1 ([facility]) ID Date Data Source [id number] 10/26/2020 08:43:19 AM [facility] Value Range Interpretation Code Description Data Source(s) WEIGHT RECORDED 306 lb 306 lb [facility] Body height Measured 75.98 in 75.98 in [facility] ID Date Data Source [id number] 08/13/2020 11:09:52 AM [facility] Value Range Interpretation Code Description Data Source(s) WEIGHT RECORDED 300.8 lb 300.8 lb [facility] ID Date Data Source [id number] 08/09/2020 09:01:08 AM [facility] Value Range Interpretation Code Description Data Source(s) WEIGHT RECORDED 299 lb 299 lb [facility] ID Date Data Source [id number] 07/30/2020 04:58:45 PM [facility] Value Range Interpretation Code Description Data Source(s) Body height Measured 75.98 in 75.98 in [facility] ID Date Data Source [id number] 08/03/2020 11:14:24 AM [facility] Value Range Interpretation Code Description Data Source(s) WEIGHT RECORDED 296.4 lb 296.4 lb [facility] ID Date Data Source [id number] 07/07/2020 09:44:22 AM [facility] Value Range Interpretation Code Description Data Source(s) WEIGHT RECORDED 302 lb 302 lb [facility] ID Date Data Source [id number] 06/15/2020 08:15:38 AM [facility] Value Range Interpretation Code Description Data Source(s) WEIGHT RECORDED 302 lb 302 lb [facility] Body height Measured 76 in 76 in [facility] Patient Treatment Plan of Care Planned Activity Planned Date Details Description Data Source (s) Elderberry 575 MG/5ML Oral Syrup 08/05/2020 12:00:00 AM [facility] celecoxib 100 MG Oral Capsule 07/30/2020 12:00:00 AM [facility] Diazepam 5 MG Oral Tablet 07/29/2020 10:00:00 PM [facility] Docusate Sodium 100 MG Oral Capsule 07/29/2020 09:00:00 PM [facility] Oxybutynin chloride 5 MG Oral Tablet 07/29/2020 05:00:00 PM [facility] Cefazolin 2000 MG Injection 07/29/2020 04:00:00 PM [facility] heparin (porcine) 5000 UNIT/ML injection 5,000 Units 020 01:45:00 PM [facility] Acetaminophen 325 MG Oral Tablet 07/29/2020 01:44:17 PM [facility] maalox/lidocaine/diphenhydrAMINE (RADIAT ION MIXTURE) 1:1:1 oral suspension 10 mL 07/29/2020 01:44:17 PM [facility] ondansetron (ZOFRAN) injection 4 mg 07/29/2020 01:44:17 PM [facility] fentaNYL (SUBLIMAZE) (PF) injection 12.5 mcg 07/29/2020 09:29:10 AM [facility] fentaNYL (SUBLIMAZE) (PF) injection 25 mcg 07/29/2020 09:28:59 AM [facility] maalox/lidocaine/diphenhydrAMINE 1:1:1 SWISH & SWAL or al suspension 07/29/2020 12:00:00 AM [facility] Acetaminophen 325 MG Oral Tablet 07/29/2020 12:00:00 AM [facility] Docusate Sodium 100 MG Oral Capsule 07/29/2020 12:00:00 AM [facility] Diazepam 5 MG Oral Tablet 07/29/2020 12:00:00 AM [facility] Sulfamethoxazole 800 MG / Trimethoprim 160 MG Oral Tab let 07/29/2020 12:00:00 AM [facility] celecoxib 100 MG Oral Capsule 07/29/2020 12:00:00 AM [facility] Oxybutynin chloride 5 MG Oral Tablet 07/29/2020 12:00:00 AM [facility] Acetaminophen 325 MG / Hydrocodone Bitartrate 5 MG Ora l Tablet 06/09/2020 12:00:00 AM EDT [facility] Sulfamethoxazole 800 MG / Trimethoprim 160 MG Oral Tab let [Bactrim] 04/23/2020 12:00:00 AM EDT eCW1 ([facility]) Sulfamethoxazole 800 MG / Trimethoprim 160 MG Oral Tab let [Bactrim] 04/23/2020 12:00:00 AM EDT eCW1 ([facility]) sildenafil 25 MG Oral Tablet [Viagra] 04/22/2020 12:00:00 AM EDT eCW1 ([facility]) sildenafil 25 MG Oral Tablet [Viagra] 04/22/2020 12:00:00 AM EDT eCW1 ([facility]) tizanidine 4 MG Oral Tablet 02/09/2020 12:00:00 AM [facility] Vitamin B 12 1 MG/ML Injectable Solution 11/08/2019 12:00:00 AM [facility] ELDERBERRY [facility]
== END 2020-12-26 04:16 | disposition home or self-care (01) ==
LOC: M ED 03:01
DX: H57.89 Other specified disorders of eye and adnexa (principal); Z88.1 Allergy status to other antibiotic agents; Z91.040 Latex allergy status; Z79.899 Other long term (current) drug therapy; Z98.890 Other specified postprocedural states